=== PATIENT | female | born 1965 | race American Indian/Alaskan Native ===

== ENCOUNTER 2017-07-21 11:12 | Emergency (ER) | payer OTHER ==
[2017-07-21 11:13] VITALS: BMI 28.3
[2017-07-21 12:14] LABS: SQUAMOUS EPITHIAL < 1 /hpf (0-5); URINE BILIRUBIN NEGATIVE (NEGATIVE); URINE BLOOD NEGATIVE (NEGATIVE); URINE CLARITY Clear (Clear); URINE COLOR Yellow (YELLOW); URINE GLUCOSE (UA) NORMAL (Normal); URINE HYALINE CAST 0-2 /lpf (0-2); URINE LEUKOCYTE ESTERASE NEG Leu/uL (Negative); URINE PROTEIN 1+ mg/dL (NEGATIVE); URINE UROBILINOGEN NORMAL mg/dL (0.2-1.0)
[2017-07-21] MEDS ORDERED: Iohexol 240 (50 ml) PO STA (12:36)
--- NOTE | 2017-07-21 12:52 | C.PDOC ---
History Of Present Illness 51 y/o female with a history of diabetes and HTN presents to the ED with left sided abdominal pain. Patient states the pain began 4 days ago and describes it as constant, sharp, and throbbing. She states that when she went to turn her belly she felt a sudden shock of pain. Patient states she did not take her DM or HTN medication today because she did not eat anything today. Patient states her appetite has been "so-so" and hasn't had a bowel movement since yesterday with it being hard in consistency. She complains of feeling constipated. Her glucose check was 173 last night. Denies any nausea, vomiting, diarrhea, fever, urinary symptoms, vaginal bleeding, or discharge. Of note, LMP was 4 years ago. She states she had a uterine cyst removed along with a fibroid. Patient states she does not have asthma or shell fish allergy. PMD: Dr. Minnie Her Time Seen by Provider: 07/21/17 11:23 Chief Complaint (Nursing): Abdominal Pain History Per: Patient History/Exam Limitations: no limitations Onset/Duration Of Symptoms: Days (x1) Current Symptoms Are (Timing): Still Present Location Of Pain/Discomfort: LLQ, Other (left flank area) Quality Of Discomfort: Sharp, "Pain" Associated Symptoms: Loss Of Appetite, Constipation. denies: Fever, Nausea, Vomiting, Diarrhea, Urinary Symptoms Last Bowel Movement: Yesterday Recent travel outside of the [place]: No Abnormal Vaginal Bleeding: No Past Medical History Vital Signs: Last Vital Signs Temp 98 F 07/21/17 15:57 Pulse 78 07/21/17 15:57 Resp 18 07/21/17 15:57 BP 126/74 07/21/17 15:57 Pulse Ox 98 07/21/17 15:57 - Medical History PMH: Anxiety, Back Problems (herniated discs), Bronchitis, Depression, Diabetes , HTN, Hypercholesterolemia, Chronic Kidney Disease, Sleep Apnea Denies: Hepatitis, HIV, Seizures, Sexually Transmitted Disease Surgical History: Endoscopy Family History: States: Unknown Family Hx - Social History Hx Tobacco Use: No Hx Alcohol Use: Yes Hx Substance Use: No - Immunization History Hx Tetanus Toxoid Vaccination: No Hx Influenza Vaccination: Yes Hx Pneumococcal Vaccination: Yes Review Of Systems Constitutional: Positive for: Other (decreased appetite). Negative for: Fever Gastrointestinal: Positive for: Abdominal Pain (left side), Constipation. Negative for: Nausea, Vomiting, Diarrhea Genitourinary: Negative for: Vaginal Discharge, Vaginal Bleeding, Other ( urinary symptoms) Physical Exam - Physical Exam Appears: Non-toxic, No Acute Distress Skin: Normal Color, Warm, Dry Head: Atraumatic, Normacephalic Eye(s): bilateral: Normal Inspection, PERRL, EOMI Cardiovascular: Rhythm Regular, No Murmur Respiratory: Normal Breath Sounds Gastrointestinal/Abdominal: Normal Exam, Bowel Sounds, Soft, Tenderness (LLQ), No Distention, No Guarding, No Rebound Back: Normal Inspection, No CVA Tenderness Extremity: Normal ROM Neurological/Psych: Oriented x3 ED Course And Treatment - Laboratory Results Result Diagrams: 07/21/17 12:41 07/21/17 12:41 O2 Sat by Pulse Oximetry: 99 (RA) Pulse Ox Interpretation: Normal Medical Decision Making Medical Decision Making: Time: 11:18 Impression: Abdominal pain r/o diverticulitis and constipation Initial Plan: * CAT Scan Abd/Pelvis PO & IV Contrast * CMP * Lipase Stat * Omnipaque 50 ml PO * Urine Test Contrary to triage intake LMP was 4 years ago NOT 34 years ago. Scribe Attestation: Documented by Hafsa Hill acting as a scribe Chela Mortensen PA-C. Scribe Attestation: All medical record entries made by the Scribe were at my direction and personally dictated by me. I have reviewed the chart and agree that the record accurately reflects my personal performance of the history, physical exam, medical decision making, and the department course for this patient. I have also personally directed, reviewed, and agree with the discharge instructions and disposition. 1533 pt comfortable mild llq pain, no rebound or guarding. no acute findings on ct. pt advised to f/u with resolution agent for fibroid uterus. pt given labs and ct reports. Disposition Counseled Patient/Family Regarding: Studies Performed, Diagnosis, Need For Followup, Rx Given - Disposition Referrals: Minnie Her MD [Staff Provider] - Disposition: HOME/ ROUTINE Disposition Time: 15:35 Condition: GOOD Additional Instructions: Please drink more fluids. Eat more foods with high fiber- fruits, vegetables. Follow up with Dr Her and with your sinter feeder for pain. Tylenol for pain. Return to ER for any worse pain or concerns. Prescriptions: Acetaminophen [Tylenol 325mg tab] 650 mg PO Q6 #30 tab Instructions: Uterine Fibroids (DC) Forms: [facility] (Spanish), General Discharge Instructions - Clinical Impression Clinical Impression: Uterine fibroid, Abdominal pain
[2017-07-21 12:53] LABS: BASO % 0.8 % (0.0-2.0); EOS # 0.2 K/uL (0.0-0.7); EOS % 4.1 % (0.0-4.0); HEMOGLOBIN 12.1 g/dL (11.0-16.0); LYMPH % 39.6 % (20.0-40.0); MEAN CELL VOLUME 87.4 fL (81.0-99.0); MEAN CORPUSCULAR HGB CONC 34.3 g/dL (33.0-37.0); MEAN PLATELET VOLUME 7.8 fL (7.2-11.7); MONO # 0.2 K/uL (0.0-0.8); MONO % 4.7 % (0.0-10.0); NEUT # 2.6 K/uL (1.8-7.0); NEUT % 50.8 % (50.0-75.0); RBC 4.05 Mil/uL (3.80-5.20); RED CELL DISTRIBUTION WIDTH 13.8 % (11.5-14.5); WHITE BLOOD COUNT 5.1 K/uL (4.8-10.8)
[2017-07-21] MEDS ORDERED: Iohexol 240 (50 ml) ONE (12:53)
[2017-07-21 13:04] LABS: ALB/GLOB RATIO 1.2 (1.0-2.1); ALBUMIN 4.1 g/dL (3.5-5.0); ALT/SGPT 11 U/L (9-52); AST/SGOT 18 U/L (14-36); BLOOD UREA NITROGEN 15 mg/dL (7-17); CALCIUM 8.7 mg/dl (8.6-10.4); GFR AFRICAN-AMERICAN > 60; GFR NON-AFRICAN AMERICAN > 60; LIPASE 163 U/L (23-300)
[2017-07-21] MEDS ORDERED: Iohexol 350mg/ml 100 ML ONE (13:36)
--- NOTE | 2017-07-21 15:09 | CT ---
PROCEDURE: CT Abdomen and Pelvis with contrast HISTORY: q eval for divertic COMPARISON: Abdomen pelvis CT 08/23/2014. TECHNIQUE: Following oral and intravenous contrast administration, a CT examination of the abdomen and pelvis performed from the domes of the diaphragms to the symphysis pubis with reformatted datasets provided not only axial but also sagittal and coronal series. Contrast dose: Omnipaque 350, 100 cc Radiation dose: Total exam DLP = 506.56 mGy-cm. This CT exam was performed using one or more of the following dose reduction techniques: Automated exposure control, adjustment of the mA and/or kV according to patient size, and/or use of iterative reconstruction technique. FINDINGS: LOWER THORAX: Unremarkable. LIVER: Unremarkable. No gross lesion or ductal dilatation. GALLBLADDER AND BILE DUCTS: Unremarkable. PANCREAS: Unremarkable. No gross lesion or ductal dilatation. SPLEEN: Unremarkable. ADRENALS: Unremarkable. No mass. KIDNEYS AND URETERS: A 2.3 x 3.1 cm lucency is seen at the upper pole right kidney with measuring 20 Hounsfield units. A previously measures 23 Hounsfield units and measure 2.0 x 2.5 cm and likely reflects a proteinaceous cyst or benign nodule. A dates back at least to prior abdomen pelvis CT without contrast 09/13/2011. VASCULATURE: Unremarkable. No aortic aneurysm. BOWEL: No colonic diverticular changes appreciated. No obstruction. No gross mural thickening. APPENDIX: A lengthy nonacute appendix identified terminating at the left lower quadrant from a medial right lower quadrant origin. PERITONEUM: Unremarkable. No free fluid. No free air. LYMPH NODES: No significant lymphadenopathy. BLADDER: Unremarkable. REPRODUCTIVE: The uterus remains grossly enlarged likely from fibroid uterine changes with exophytic fibroid likely in the left adnexal compartment measuring 2.7 x 3.4 cm seen in prior CT 08/23/2014. BONES: No acute fracture. OTHER FINDINGS: None. IMPRESSION: 1. No bowel obstruction, measure edema, ascites or free intrarenal gas evident. No colonic diverticular changes. 2. Grossly enlarged uterus with heterogeneous density compatible most likely with extensive uterine fibroid development including an exophytic component into the left adnexal compartment, not dramatically changed in the interval compared [id number] 3. 3.1 cm lucency upper pole left kidney likely reflects complex cyst or possible benign nodule dating back to 09/13/2011 though somewhat larger now than previously shown. Follow ultrasonography is advised in 12 months.
[2017-07-21 15:58] VITALS: BP 126/74; PULSE 78; RESP 18; TEMP 98
[2017-07-25 08:32] VITALS: O2SAT 99
== END 2017-07-21 15:58 | disposition home or self-care (01) ==
LOC: C.ER 11:12
DX: D25.9 Leiomyoma of uterus, unspecified (principal); R10.9 Unspecified abdominal pain
CPT/HCPCS: 74177; 80053; 81001; 83690; 85025; 99285; Q9966; Q9967

== ENCOUNTER 2017-09-28 02:01 | Emergency (ER) | payer OTHER ==
[2017-09-28 02:02] VITALS: BMI 28.3
[2017-09-28 03:50] LABS: ALB/GLOB RATIO 1.3 (1.0-2.1); ALBUMIN 4.1 g/dL (3.5-5.0); ALT/SGPT 18 U/L (9-52); AST/SGOT 13 U/L (14-36); BLOOD UREA NITROGEN 16 mg/dL (7-17); CALCIUM 9.4 mg/dl (8.6-10.4); GFR AFRICAN-AMERICAN > 60; GFR NON-AFRICAN AMERICAN > 60
[2017-09-28 03:56] LABS: BASO % 0.4 % (0.0-2.0); EOS # 0.3 K/uL (0.0-0.7); EOS % 4.6 % (0.0-4.0); HEMOGLOBIN 11.4 g/dL (11.0-16.0); LYMPH # 2.5 K/uL (1.0-4.3); LYMPH % 39.7 % (20.0-40.0); MEAN CELL VOLUME 86.1 fL (81.0-99.0); MEAN CORPUSCULAR HEMOGLOBIN 29.6 pg (27.0-31.0); MEAN CORPUSCULAR HGB CONC 34.4 g/dL (33.0-37.0); MEAN PLATELET VOLUME 7.5 fL (7.2-11.7); MONO # 0.4 K/uL (0.0-0.8); MONO % 6.3 % (0.0-10.0); NRBC % 0.1 % (0.0-2.0); RBC 3.85 Mil/uL (3.80-5.20); RED CELL DISTRIBUTION WIDTH 13.6 % (11.5-14.5); WHITE BLOOD COUNT 6.2 K/uL (4.8-10.8)
[2017-09-28 04:01] LABS: B-TYPE NATRIURETIC PEPTIDE 64.2 pg/mL (0-900)
--- NOTE | 2017-09-28 04:04 | C.PDOC ---
History Of Present Illness 52 year old female presents to the ER with a complaint of an intermittent sharp left sided back pain that radiates to her left chest for the past 3 days. Denies SOB, fever, or trauma. Time Seen by Provider: 09/28/17 02:23 Chief Complaint (Nursing): Back Pain History Per: Patient History/Exam Limitations: no limitations Onset/Duration Of Symptoms: Days, Intermittent Episodes Current Symptoms Are (Timing): Still Present Quality Of Discomfort: Sharp Exacerbating Factor(s): Nothing Recent travel outside of the [place]: No Past Medical History Reviewed: Historical Data, Nursing Documentation, Vital Signs Vital Signs: Last Vital Signs Temp 98.4 F 09/28/17 05:07 Pulse 86 09/28/17 05:07 Resp 20 09/28/17 05:07 BP 171/97 H 09/28/17 05:07 Pulse Ox 99 09/28/17 05:07 - Medical History PMH: Anxiety, Back Problems (herniated discs), Bronchitis, Depression, Diabetes , HTN, Hypercholesterolemia, Chronic Kidney Disease, Sleep Apnea Denies: Hepatitis, HIV, Seizures, Sexually Transmitted Disease Surgical History: Endoscopy Family History: States: Unknown Family Hx - Social History Hx Tobacco Use: No Hx Alcohol Use: Yes Hx Substance Use: No - Immunization History Hx Tetanus Toxoid Vaccination: No Hx Influenza Vaccination: Yes Hx Pneumococcal Vaccination: Yes Review Of Systems Constitutional: Negative for: Fever, Chills Cardiovascular: Positive for: Chest Pain Respiratory: Negative for: Shortness of Breath Gastrointestinal: Negative for: Nausea, Vomiting Musculoskeletal: Positive for: Back Pain Physical Exam - Physical Exam Appears: Non-toxic Skin: Normal Color, Warm, Dry Head: Atraumatic, Normacephalic Eye(s): bilateral: Normal Inspection Oral Mucosa: Moist Neck: Normal, No Midline Cervical Tenderness, No Paracervical Tenderness, Supple Chest: Symmetrical, No Tenderness Cardiovascular: Rhythm Regular Respiratory: Normal Breath Sounds, No Rales, No Rhonchi, No Wheezing Gastrointestinal/Abdominal: Soft, No Tenderness Extremity: Normal ROM (x4) Neurological/Psych: Oriented x3, Normal Speech ED Course And Treatment - Laboratory Results Result Diagrams: 09/28/17 03:53 09/28/17 03:35 ECG: Interpreted By Me ECG Rhythm: Sinus Rhythm ECG Interpretation: Normal Interpretation Of EC O2 Sat by Pulse Oximetry: 98 (Room air) Pulse Ox Interpretation: Normal Medical Decision Making Medical Decision Making: EKG, blood work, and CXR ordered, results were negative. Aspirin administered. On reevaluation, patient reports improvement of pain, she is resting comfortably in the ER in no acute distress, vitals are stable, will discharge home with instructions to follow up with PMD or return if symptoms worsen. Disposition - Disposition Referrals: Minnie Her MD [Staff Provider] - Disposition: HOME/ ROUTINE Disposition Time: 04:56 Condition: GOOD Additional Instructions: Follow up with the medical doctor/clinic within 1-2 days without fail. Return if worsened. 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 - Scribe Statement The provider has reviewed the documentation as recorded by the Scribe Donnie Ng All medical record entries made by the Scribe were at my direction and personally dictated by me. I have reviewed the chart and agree that the record accurately reflects my personal performance of the history, physical exam, medical decision making, and the department course for this patient. I have also personally directed, reviewed, and agree with the discharge instructions and disposition.
[2017-09-28 05:08] VITALS: BP 171/97; PULSE 86; RESP 20; TEMP 98.4
[2017-09-28 05:53] VITALS: O2SAT 98
--- NOTE | 2017-09-28 09:43 | RAD ---
Date of service: 09/28/2017 PROCEDURE: CHEST RADIOGRAPH, 1 VIEW HISTORY: chest pain COMPARISON: Chest radiograph 04/22/2011. FINDINGS: LUNGS: No acute airspace disease bilaterally. PLEURA: No pneumothorax or pleural fluid seen. CARDIOVASCULAR: Normal. OSSEOUS STRUCTURES: No significant abnormalities. VISUALIZED UPPER ABDOMEN: Normal. OTHER FINDINGS: None. IMPRESSION: No interval acute cardiopulmonary disease appreciated.
--- NOTE | 2017-09-30 12:20 | CARD ---
APPROVED REPORT Date of service: 09/28/2017 EKG Measurement Heart [id number] MA [id number] <Conclusion> Normal sinus rhythm Nonspecific T wave abnormality Abnormal ECG
== END 2017-09-28 05:14 | disposition home or self-care (01) ==
LOC: C.ER 02:01
DX: M94.0 Chondrocostal junction syndrome [Tietze] (principal)

== ENCOUNTER 2018-01-23 19:57 | Emergency (ER) | payer OTHER ==
[2018-01-23 19:57] VITALS: BMI 28.3
[2018-01-23 20:07] VITALS: TEMP 98.2
[2018-01-23] MEDS ORDERED: Albuterol-Ipratrop 3 mg / 0.5 (3 ml) UD IH STA (20:35)
[2018-01-23] MEDS ORDERED: Albuterol-Ipratrop 3 mg / 0.5 (3 ml) UD ONE (20:44)
--- NOTE | 2018-01-23 21:24 | C.PDOC ---
History Of Present Illness 52 y/o female presents to the ER complaining of productive cough with yellow sputum which has been present for the past 2 weeks.Patient states that she has associated nasal congestion and sore throat. Patient reports that she took OTC Theraflu which raised her bp. Denies having fever, chills, headache, and dizziness. Time Seen by Provider: 01/23/18 20:17 Chief Complaint (Nursing): Cough, Cold, Congestion History Per: Patient History/Exam Limitations: no limitations Onset/Duration Of Symptoms: Days Current Symptoms Are (Timing): Still Present Severity: Moderate Past Medical History Reviewed: Historical Data, Nursing Documentation, Vital Signs Vital Signs: Last Vital Signs Temp 98.2 F 01/23/18 20:03 Pulse 86 01/23/18 20:03 Resp 20 01/23/18 20:03 BP 160/100 H 01/23/18 20:03 Pulse Ox 98 01/23/18 20:03 - Medical History PMH: Back Problems (herniated discs), Bronchitis, Diabetes, Gastritis, HTN, Hypercholesterolemia, Chronic Kidney Disease, Sleep Apnea Surgical History: Endoscopy Family History: States: No Known Family Hx - Social History Hx Tobacco Use: No Hx Alcohol Use: No Hx Substance Use: No - Immunization History Hx Tetanus Toxoid Vaccination: No Hx Influenza Vaccination: Yes Hx Pneumococcal Vaccination: Yes Review Of Systems Except As Marked, All Systems Reviewed And Found Negative. Constitutional: Negative for: Fever, Chills ENT: Positive for: Nose Congestion, Throat Pain Respiratory: Positive for: Cough, Sputum (yellow) Gastrointestinal: Negative for: Nausea, Vomiting Neurological: Negative for: Headache, Dizziness Physical Exam - Physical Exam Appears: Non-toxic, Other (dry coughing) Skin: Normal Color, Warm, Dry Head: Atraumatic, Normacephalic Eye(s): bilateral: Normal Inspection, EOMI Ear(s): Bilateral: Normal Nose: Normal Oral Mucosa: Moist Throat: No Erythema, No Exudate, Other (post-nasal drip) Neck: Normal ROM, Supple Chest: Symmetrical Cardiovascular: Rhythm Regular, No Friction Rub, No Murmur, No JVD Respiratory: Normal Breath Sounds, No Rales, No Rhonchi, No Wheezing Extremity: Bilateral: Atraumatic, Normal ROM Neurological/Psych: Oriented x3, Normal Speech ED Course And Treatment O2 Sat by Pulse Oximetry: 98 (RA) Pulse Ox Interpretation: Normal Medical Decision Making Medical Decision Making: Plan: --Prednisone PO --Albuterol Patient remained alert and oriented in no distress. She has no SOB, chest pain, dizziness. Patient reported relief with nebulizer. Recommend follow up with PMD Disposition Counseled Patient/Family Regarding: Diagnosis, Need For Followup, Rx Given - Disposition Referrals: Lyla Her MD [Medical Doctor] - Disposition: HOME/ ROUTINE Disposition Time: 21:24 Condition: IMPROVED Additional Instructions: You have viral upper respiratory infection. Take Tylenol or Motrin alternating every 4-6 hours for Fever 100.4F or higher. Rest and drink plenty of fluids. May use cool mist humidifier or vaporizer in room. Try taking over the counter antihistamine (Claritin, Brittany, Zyrtec), Decongestant or Cough medicine (Mucinex) as needed every 6-8 hours. Follow up with your primary medical doctor or clinic in 1 week for further evaluation. 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 - Scribe Statement The provider has reviewed the documentation as recorded by the Kaitlin Escobar Provider Attestation All medical record entries made by the Kaitlin were at my direction and personally dictated by me. I have reviewed the chart and agree that the record accurately reflects my personal performance of the history, physical exam, medical decision making, and the department course for this patient. I have also personally directed, reviewed, and agree with the discharge instructions and disposition.
[2018-01-23 21:34] VITALS: BP 158/84; PULSE 80; RESP 18
[2018-01-23 21:35] VITALS: O2SAT 98
== END 2018-01-23 21:34 | disposition home or self-care (01) ==
LOC: C.ER 19:57
DX: J40 Bronchitis, not specified as acute or chronic (principal)

== ENCOUNTER 2018-02-27 09:29 | Outpatient (CLI) | payer OTHER | END 2018-02-27 09:30 | disposition home or self-care (01) | LOC: C.MAMMO 09:30 | DX: N63.0 Unspecified lump in unspecified breast (principal) ==

== ENCOUNTER 2018-04-05 03:58 | Inpatient (IN) | payer MEDICAID, OTHER ==
[2018-04-05 03:59] VITALS: BMI 28.3
[2018-04-05] MEDS ORDERED: Sodium Chloride 0.9% 1,000 ML IV ONE (05:04)
--- NOTE | 2018-04-05 05:15 | C.PDOC ---
History Of Present Illness 52 year old female with PMHx of HTN, DM, and HLD presents to the ED for evaluation of abdominal pain and back pain. Patient states that she ate at [employer] today where she had some salad, wings and 2 glasses of wine. Patient reports that soon after eating she started feeling sick, chills. Patient vomited and had a loose bowel movement while at the restaurant. Patient went home where she had more vomiting episodes and loose bowel movements. Patient reports she thinks she might have food poisoning. Patient denies fever, chills, headache, visual changes, SOB, palpitations, dizziness, weakness, numbness. <Elder Shirley - Last Filed: 04/05/18 05:41> History Per: Patient History/Exam Limitations: no limitations Onset/Duration Of Symptoms: Hrs Current Symptoms Are (Timing): Still Present Context: Food Pain Scale Rating Of: 5 Location Of Pain/Discomfort: Diffuse Radiation Of Pain To:: None Quality Of Discomfort: "Pain" Associated Symptoms: Nausea, Vomiting, Diarrhea. denies: Urinary Symptoms Exacerbating Factors: Food Alleviating Factors: None Last Bowel Movement: Today Recent travel outside of the [place]: No Additional History Per: Patient Abnormal Vaginal Bleeding: No <Elder Shirley - Last Filed: 04/05/18 05:41> <Dalton Molina - Last Filed: 04/05/18 05:53> Time Seen by Provider: 04/05/18 04:06 Chief Complaint (Nursing): Abdominal Pain Past Medical History Reviewed: Historical Data, Nursing Documentation, Vital Signs Vital Signs: Last Vital Signs Temp 97.3 F L 04/05/18 04:09 Pulse 66 04/05/18 04:09 Resp 16 04/05/18 04:09 BP 188/91 H 04/05/18 04:09 Pulse Ox 100 04/05/18 04:09 - Medical History PMH: Back Problems (herniated discs), Bronchitis, Diabetes, Gastritis, HTN, Hypercholesterolemia, Chronic Kidney Disease, Sleep Apnea Denies: Hepatitis, HIV, Sexually Transmitted Disease Surgical History: Endoscopy Family History: States: Unknown Family Hx - Social History Hx Tobacco Use: No Hx Alcohol Use: No Hx Substance Use: No - Immunization History Hx Tetanus Toxoid Vaccination: No Hx Influenza Vaccination: Yes Hx Pneumococcal Vaccination: Yes <Elder Shirley - Last Filed: 04/05/18 05:41> Vital Signs: Last Vital Signs Temp 97.3 F L 04/05/18 04:09 Pulse 66 04/05/18 04:09 Resp 16 04/05/18 04:09 BP 188/91 H 04/05/18 04:09 Pulse Ox 100 04/05/18 05:18 <Dalton Molina - Last Filed: 04/05/18 05:53> Review Of Systems Constitutional: Negative for: Fever, Chills Cardiovascular: Negative for: Chest Pain, Palpitations Respiratory: Negative for: Shortness of Breath Gastrointestinal: Positive for: Nausea, Vomiting, Abdominal Pain, Diarrhea Genitourinary: Negative for: Dysuria, Hematuria Musculoskeletal: Positive for: Back Pain Skin: Negative for: Rash Neurological: Negative for: Weakness, Numbness, Headache, Dizziness <Elder Shirley - Last Filed: 04/05/18 05:41> Physical Exam - Physical Exam Appears: Non-toxic, No Acute Distress Skin: Normal Color, Warm, Dry Head: Atraumatic, Normacephalic Eye(s): bilateral: Normal Inspection Oral Mucosa: Moist Neck: Normal ROM, Supple Chest: Symmetrical Cardiovascular: Rhythm Regular Respiratory: Normal Breath Sounds, No Rales, No Rhonchi, No Wheezing Gastrointestinal/Abdominal: Soft, Tenderness (diffuse to the epigastric area), No Guarding, No Rebound Back: No Paraspinal Tenderness Extremity: Normal ROM, No Tenderness, No Swelling Neurological/Psych: Oriented x3, Normal Speech, Normal Cognition Gait: Steady <Elder Shirley - Last Filed: 04/05/18 05:41> ED Course And Treatment - Laboratory Results Result Diagrams: 04/05/18 05:33 O2 Sat by Pulse Oximetry: 100 <Elder Shirley - Last Filed: 04/05/18 05:41> - Laboratory Results Result Diagrams: 04/05/18 05:33 ECG: Interpreted By Me, Viewed By Me ECG Rhythm: Sinus Rhythm (71), ST/T Changes (inf wall mi) Pulse Ox Interpretation: Normal - Radiology CXR: Interpreted by Me, Viewed By Me Progress Note: 5:17 am sent ekg to dr morales. 5;22AM code heart called <TracyRachanita - Last Filed: 04/05/18 05:53> Critical Care Time - Critical Care Note Total Time (in mins): 30 Documented critical care: time excludes all time spent performing seperately billable procedures. <Dalton Molina - Last Filed: 04/05/18 05:53> Medical Decision Making Medical Decision Making: Plan: * EKG * Labs * CXR * Aspirin 325 mg PO * Brilinta 180 mg PO * Heparin IVPB * Nitroglycerin IV * IV fluids * UA 05:10- While in the ED patient started c/o sudden onset chest pain, EKG, CXR, cardiac enzymes were ordered. EKG was suggestive of STEMI of the inferior wall with ST elevations present. Case was presented to the ED attending Dr. Molina who communicated with Dr. Morales (code [facility] occupational therapy teacher). 05:17 - EKG was sent to Dr. Morales for review, agrees that code [facility] should be called. 05:20- [facility] was called. 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 - Scribe Statement The provider has reviewed the documentation as recorded by the Scribe Hiren Suazo All medical record entries made by the Scribe were at my direction and personally dictated by me. I have reviewed the chart and agree that the record accurately reflects my personal performance of the history, physical exam, medical decision making, and the department course for this patient. I have also personally directed, reviewed, and agree with the discharge instructions and disposition. <Elder Shirley - Last Filed: 04/05/18 05:41> Decision To Admit <Elder Shirley - Last Filed: 04/05/18 05:41> - Pt Status Changed To: Hospital Disposition Of: Inpatient - Admit Certification Admit to Inpatient:: After my assessment, the patient will require hospitalization for at least two midnights. This is because of the severity of symptoms shown, intensity of services needed, and/or the medical risk in this patient being treated as an outpatient. - InPatient: Physician Admission Certification:: After my assessment, the patient will require hospitalization for at least two midnights. This is because of the severity of symptoms shown, intensity of services needed, and/or the medical risk in this patient being treated as an outpatient. - . Bed Request Type: ICU Admitting Physician: Minnie Her <Dalton Molina - Last Filed: 04/05/18 05:53> - . Patient Diagnosis: Acute HI, inferior wall
[2018-04-05] MEDS ORDERED: Nitroglycerin 2% Ointment Foilpak UD TOP STA (05:18)
--- NOTE | 2018-04-05 05:18 | C.PDOC ---
Time Seen by Provider: 04/05/18 04:06 Chief Complaint (Nursing): Chest Pain History Per: Patient History/Exam Limitations: no limitations Onset/Duration Of Symptoms: Sudden Onset Current Symptoms Are (Timing): Still Present Pain Scale Rating Of: 5 Quality: Pressure Associated Symptoms: Nausea, Dyspnea. denies: Diaphoresis, Syncope Past Medical History Reviewed: Historical Data, Nursing Documentation Vital Signs: Last Vital Signs Temp 97.3 F L 04/05/18 04:09 Pulse 66 04/05/18 04:09 Resp 16 04/05/18 04:09 BP 188/91 H 04/05/18 04:09 Pulse Ox 100 04/05/18 05:15 - Medical History PMH: Back Problems (herniated discs), Bronchitis, Diabetes, Gastritis, HTN, Hypercholesterolemia, Chronic Kidney Disease, Sleep Apnea Denies: Hepatitis, HIV, Sexually Transmitted Disease Surgical History: Endoscopy Family History: States: Unknown Family Hx - Social History Hx Tobacco Use: No Hx Alcohol Use: No Hx Substance Use: No - Immunization History Hx Tetanus Toxoid Vaccination: No Hx Influenza Vaccination: Yes Hx Pneumococcal Vaccination: Yes ED Course And Treatment O2 Sat by Pulse Oximetry: 100 Disposition - Disposition Forms: [facility] (Mauritian)
[2018-04-05] MEDS ORDERED: Heparin25000 units/250ml 1/2NS 25,000 UNITS/250 ML BAG IV ONE (05:27)
[2018-04-05] MEDS ORDERED: Nitroglycerin 50mg in D5W 50 MG/250 ML BOTTLE IV ONE (05:30)
[2018-04-05 05:39] LABS: BASO # 0.1 K/uL (0.0-0.2); BASO % 1.2 % (0.0-2.0); EOS # 0.3 K/uL (0.0-0.7); EOS % 3.3 % (0.0-4.0); HEMOGLOBIN 12.6 g/dL (11.0-16.0); LYMPH # 1.5 K/uL (1.0-4.3); LYMPH % 18.7 % (20.0-40.0); MEAN CELL VOLUME 86.9 fL (81.0-99.0); MEAN CORPUSCULAR HEMOGLOBIN 28.9 pg (27.0-31.0); MEAN CORPUSCULAR HGB CONC 33.3 g/dL (33.0-37.0); MEAN PLATELET VOLUME 7.7 fL (7.2-11.7); MONO # 0.2 K/uL (0.0-0.8); MONO % 2.6 % (0.0-10.0); NEUT % 74.2 % (50.0-75.0); RBC 4.36 Mil/uL (3.80-5.20)
[2018-04-05] MEDS ORDERED: Iodixanol 320 MG/ML 200 ML BOTTLE IV ONE (05:57)
[2018-04-05 06:01] LABS: INR 1.1; PROTHROMBIN TIME 11.7 SECONDS (9.7-12.2)
[2018-04-05] MEDS ORDERED: Metoprolol 1 mg/ml Inj ONE (06:05)
[2018-04-05] MEDS ORDERED: Lidocaine 2% MPF (5 ml) Inj ONE (06:30)
[2018-04-05] MEDS ORDERED: Midazolam 2 MG/2 ML VIAL ONE (06:31)
[2018-04-05] MEDS ORDERED: Iodixanol 320 MG/ML 100 ML BOTTLE IV ONE (06:43)
[2018-04-05 07:45] LABS: ALB/GLOB RATIO 1.5 (1.0-2.1); ALBUMIN 3.6 g/dL (3.5-5.0); ALT/SGPT 18 U/L (9-52); AST/SGOT 41 U/L (14-36); BLOOD UREA NITROGEN 23 mg/dL (7-17); CALCIUM 8.5 mg/dl (8.6-10.4); GFR NON-AFRICAN AMERICAN > 60
[2018-04-05] MEDS ORDERED: Magnesium Sulfate 454 g Box PO STA (08:33)
[2018-04-05] MEDS ORDERED: Magnesium Sulfate 1 gm in D5W 1 GM/100 ML BAG IVPB ONE (08:53)
--- NOTE | 2018-04-05 09:21 | CP.PCM.CON ---
History of Present Illness - History of Present Illness History of Present Illness: Chief complaint: Chest pain HPI: 52-year-old female with a history of hypertension diabetes high cholesterol taking some medications, but not clear came to the emergency room with chest pain. Yesterday she went eating during the lunchtime outside, after eating she started having some discomfort in the chest, she was also having episodes of diarrhea, vomiting She went home, following that she continues to have a symptoms of chest d iscomfort pain and burning sensation in the outer chest area, and vomited again. Patient's daughter immediately called ambulance, and brought to the emergency room. In the ER patient was evaluated, code heart was initiated because of the ST elevation changes in the EKG. Patient was immediately taken to the cardiac Fiscal Technician, patient had angiogram, and stent placement to the RCA, and she also has lesions in the LAD which probably needs to be evaluated and needed intervention later. Now patient is feeling okay, she has mild chest discomfort, blood pressure was noted to be elevated, no chest pain or shortness of breath at this time. Past medical history: Diabetes hypertension high cholesterol Allergies no known drug allergy Personal history non-smoker. No drug abuse Nonalcoholic Patient is working in the [employer] Review of system: No headache. Denies any chest pain. Patient had a chest discomfort and pain yesterday. She was having a lot of pain for some time in the past No GI symptoms except vomiting and diarrhea yesterday. No abdominal pain now. Patient is feeling somewhat hungry On examination: Vital signs are stable. Chest good air entry Regular heart sounds noted Abdomen soft Nontender. No pedal edema [employer] alert awake oriented x3 no functional neurological deficit EKG showing ST elevation inferior wall. Labs positive for troponin Assessment and recommendation: Is a 52-year-old female with a history of diabetes hypertension high cholesterol admitted with the ST elevation GA. Multiple heart disease. Status post stent. Patient also needs a elective stenting for LAD. We will continue antiplatelets, anti-cholesterol medication as well as the blood pressure medications. Glucose monitoring. DVT and GI prophylaxis. We will continue the current treatment. Blood pressure control. And will follow the patient. Educated the patient regarding the heart disease Past Patient History - Infectious Disease Hx of Infectious Diseases: None - Tetanus Immunizations Tetanus Immunization: Unknown - Past Medical History & Family History Past Medical History?: Yes - Past Social History Smoking Status: Never Smoked - CARDIAC Hx Hypercholesterolemia: Yes Hx Hypertension: Yes - PULMONARY Hx Bronchitis: Yes Hx Sleep Apnea: Yes - HEENT Hx HEENT Problems: Yes Other/Comment: HX: DEVIATED SEPTUM, ENLARGED TURBINATES, MAXILLARY SINSUS, ETHMOID SINSUS, FRONTAL SINSUS, SPHENOID SINSUS - RENAL Hx Chronic Kidney Disease: Yes - ENDOCRINE/METABOLIC Hx Endocrine Disorders: Yes Hx Diabetes Mellitus Type 1: Yes - HEMATOLOGICAL/ONCOLOGICAL Hx Human Immunodeficiency Virus (HIV): No - INTEGUMENTARY Hx Dermatological Problems: No - MUSCULOSKELETAL/RHEUMATOLOGICAL Hx Musculoskeletal Disorders: No Hx Falls: No - GASTROINTESTINAL Hx Gastritis: Yes - GENITOURINARY/GYNECOLOGICAL Hx Sexually Transmitted Disorders: No - PSYCHIATRIC Hx Substance Use: No - SURGICAL HISTORY Hx Surgeries: Yes Other/Comment: HX: FIBROID REMOVED FROM UTERUS. HX: CYST REMOVED FROM KIDNEY - ANESTHESIA Hx Anesthesia: Yes Hx Anesthesia Reactions: No Hx Malignant Hyperthermia: No Meds Allergies/Adverse Reactions: Allergies Allergy/AdvReac Type Severity Reaction Status Date / Time No Known Allergies Allergy Verified 01/23/18 20:07 - Medications Medications: Current Medications Aspirin (Aspirin) 325 mg PO DAILY [facility] Heparin Sodium/Sodium Chloride (Heparin 07457 Units/250ml 1/2 Normal Saline) 25,000 units in 250 mls @ 9.09 mls/hr IV .Q24H ONE; Protocol Stop: 04/06/18 05:26 Last Admin: 04/05/18 05:30 Dose: 12 units/kg/hr, 9.09 mls/hr Nitroglycerin/Dextrose (Nitroglycerin 50 Mg/250 Ml D5w) 50 mg in 250 mls @ 6 mls/hr IV .Q24H ONE Stop: 04/06/18 05:29 Last Admin: 04/05/18 05:35 Dose: 6 mls/hr Potassium Chloride (Potassium Chloride 20 Meq/100 Ml) 20 meq in 100 mls @ 50 mls/hr IVPB ONCE ONE Stop: 04/05/18 12:29 Magnesium Sulfate/Dextrose (Magnesium Sulfate 1 Gm/100 Ml D5w) 1 gm in 100 mls @ 200 mls/hr IVPB ONCE ONE Stop: 04/05/18 09:22 Losartan Potassium (Cozaar) 25 mg PO DAILY [facility] Rosuvastatin Calcium (Crestor) 5 mg PO HS [facility] Ticagrelor (Brilinta) 90 mg PO BID [facility] Results - Vital Signs Recent Vital Signs: Last Vital Signs Temp 97.9 F 04/05/18 05:40 Pulse 92 H 04/05/18 05:40 Resp 24 04/05/18 05:40 BP 201/134 H 04/05/18 05:40 Pulse Ox 100 04/05/18 05:41 - Labs Result Diagrams: 04/05/18 05:33 04/05/18 07:29 Labs: Laboratory Results - last 24 hr 04/05/18 04/05/18 04/05/18 05:33 05:33 07:29 WBC 8.0 RBC 4.36 Hgb 12.6 Hct 37.9 MCV 86.9 MCH 28.9 MCHC 33.3 RDW 14.0 Plt Count 299 MPV 7.7 Neut % (Auto) 74.2 Lymph % (Auto) 18.7 L [place] % (Auto) 2.6 Eos % (Auto) 3.3 Baso % (Auto) 1.2 Neut # (Auto) 6.0 Lymph # (Auto) 1.5 [place] # (Auto) 0.2 Eos # (Auto) 0.3 Baso # (Auto) 0.1 PT 11.7 INR 1.1 APTT 26 D-Dimer, Quantitative 273 H Sodium 137 Potassium 3.4 L Chloride 102 Carbon Dioxide 29 Anion Gap 10 BUN 23 H Creatinine 0.9 Est GFR ( Amer) > 60 Est GFR (Non-Af Amer) > 60 Random Glucose 374 H D Calcium 8.5 L Phosphorus Magnesium Total Bilirubin 0.4 AST 41 H D ALT 18 Alkaline Phosphatase 84 Troponin I 5.4900 H* Total Protein 6.0 L Albumin 3.6 Globulin 2.4 Albumin/Globulin Ratio 1.5 04/05/18 08:50 WBC RBC Hgb Hct MCV MCH MCHC RDW Plt Count MPV Neut % (Auto) Lymph % (Auto) [place] % (Auto) Eos % (Auto) Baso % (Auto) Neut # (Auto) Lymph # (Auto) [place] # (Auto) Eos # (Auto) Baso # (Auto) PT INR APTT D-Dimer, Quantitative Sodium Potassium Chloride Carbon Dioxide Anion Gap BUN Creatinine Est GFR ( Amer) Est GFR (Non-Af Amer) Random Glucose Calcium Phosphorus 3.5 Magnesium 1.7 Total Bilirubin AST ALT Alkaline Phosphatase Troponin I Total Protein Albumin Globulin Albumin/Globulin Ratio
--- NOTE | 2018-04-05 10:22 | RAD ---
Date of service: 04/05/2018 HISTORY: SOB; chest pain COMPARISON: Portable chest 09/28/2017. FINDINGS: LUNGS: No active pulmonary disease. PLEURA: No significant pleural effusion identified, no pneumothorax apparent. CARDIOVASCULAR: No aortic atherosclerotic calcification present. Normal cardiac size. No pulmonary vascular congestion. OSSEOUS STRUCTURES: No significant abnormalities. VISUALIZED UPPER ABDOMEN: Normal. OTHER FINDINGS: None. IMPRESSION: No acute cardiopulmonary disease appreciated.
[2018-04-05] MEDS: (Novolin R) Insulin Human Regular 100 units/ml vial SC SCH ×3 (12:34→21:25)
[2018-04-05 15:52] LABS: BASO % 0.6 % (0.0-2.0); EOS % 0.5 % (0.0-4.0); LYMPH # 1.3 K/uL (1.0-4.3); LYMPH % 15.6 % (20.0-40.0); MEAN CELL VOLUME 87.4 fL (81.0-99.0); MEAN CORPUSCULAR HEMOGLOBIN 29.5 pg (27.0-31.0); MEAN CORPUSCULAR HGB CONC 33.8 g/dL (33.0-37.0); MONO # 0.4 K/uL (0.0-0.8); MONO % 4.6 % (0.0-10.0); NEUT # 6.4 K/uL (1.8-7.0); NEUT % 78.7 % (50.0-75.0); RBC 3.56 Mil/uL (3.80-5.20); RED CELL DISTRIBUTION WIDTH 14.3 % (11.5-14.5); WHITE BLOOD COUNT 8.2 K/uL (4.8-10.8)
--- NOTE | 2018-04-05 15:57 | US ---
Date of service: 04/05/2018 HISTORY: abd pain COMPARISON: Abdomen pelvis CT 07/21/2017. TECHNIQUE: Sonographic evaluation of the abdomen. FINDINGS: LIVER: Measures 19.5 cm. Normal echogenicity of the liver parenchyma. No mass. No intrahepatic bile duct dilatation. GALLBLADDER: Unremarkable. No gallstones. COMMON BILE DUCT: Measures 5.0 mm. No stones. No dilatation. PANCREAS: The tail of the pancreas is obscured by overlying bowel gas with remainder unremarkable. RIGHT KIDNEY: Measures 10.2cm. A complex cyst is a identified at the upper pole right kidney measuring 2.9 x 2.6 x 2.9 cm, not significantly changed in size compared to CT 07/21/2017. No hydronephrosis, urolithiasis or solid parenchymal mass. LEFT KIDNEY: Measures 11.1cm. A small simple cyst seen at the upper pole slightly larger in size measuring 1.4 x 1.3 x 1.5 cm. No obstructive uropathy or urolithiasis. No solid parenchymal mass. SPLEEN: Normal in size and contour, measuring 8.7 cm. No mass. AORTA: No aneurysmal dilatation. IVC: Unremarkable. OTHER FINDINGS: None. IMPRESSION: Upper limits normal size liver without mass or biliary tree dilatation evident. Gallbladder and common bile ducts are unremarkable as imaged. Partial imaging of the pancreas as discussed above. Small complex cyst upper pole left kidney with even smaller simple cysts noted slightly larger at the upper pole left kidney. The tail of the pancreas is obscured by overlying bowel gas with remainder unremarkable.
[2018-04-05 15:58] LABS: HEMOGLOBIN 10.5 g/dL (11.0-16.0)
[2018-04-05 16:25] LABS: ALB/GLOB RATIO 1.5 (1.0-2.1); ALBUMIN 3.9 g/dL (3.5-5.0); ALT/SGPT 25 U/L (9-52); AST/SGOT 141 U/L (14-36); BLOOD UREA NITROGEN 26 mg/dL (7-17); GFR NON-AFRICAN AMERICAN > 60; LIPASE 114 U/L (23-300)
[2018-04-05 16:27] LABS: CK-MB 34.8 ng/mL (0.0-3.38); TROPONIN I 58.9 ng/mL (0.00-0.120)
[2018-04-06 06:32] LABS: BASO % 0.4 % (0.0-2.0); EOS # 0.2 K/uL (0.0-0.7); EOS % 2.8 % (0.0-4.0); HEMOGLOBIN 10.2 g/dL (11.0-16.0); LYMPH # 2.5 K/uL (1.0-4.3); LYMPH % 39.9 % (20.0-40.0); MEAN CELL VOLUME 87.2 fL (81.0-99.0); MEAN CORPUSCULAR HEMOGLOBIN 29.2 pg (27.0-31.0); MEAN CORPUSCULAR HGB CONC 33.5 g/dL (33.0-37.0); MEAN PLATELET VOLUME 7.9 fL (7.2-11.7); MONO # 0.4 K/uL (0.0-0.8); MONO % 6.3 % (0.0-10.0); NEUT # 3.2 K/uL (1.8-7.0); NEUT % 50.6 % (50.0-75.0); RBC 3.48 Mil/uL (3.80-5.20); RED CELL DISTRIBUTION WIDTH 14.1 % (11.5-14.5); WHITE BLOOD COUNT 6.3 K/uL (4.8-10.8)
[2018-04-06 06:49] LABS: ALB/GLOB RATIO 1.4 (1.0-2.1); ALBUMIN 3.5 g/dL (3.5-5.0); ALT/SGPT 26 U/L (9-52); AST/SGOT 76 U/L (14-36); BLOOD UREA NITROGEN 29 mg/dL (7-17); CALCIUM 8.9 mg/dl (8.6-10.4); GFR NON-AFRICAN AMERICAN 53; HDL CHOLESTEROL 41 mg/dL (30-70)
[2018-04-06 06:57] LABS: LDL CHOLESTEROL 98 mg/dL (0-129)
[2018-04-06] MEDS: (Novolin R) Insulin Human Regular 100 units/ml vial SC SCH ×4 (08:14→23:00)
--- NOTE | 2018-04-06 11:33 | CATH ---
APPROVED REPORT Date of service: 04/05/2018 Procedure(s) performed: Cardiac catheterization with Angioplasty and Stenting of RCA and P L branch of RCA HISTORY The patient is a 52 year-old female with a history of : diabetes mellitus with treatment, hypertension, dyslipidemia. INDICATION The indication(s) include : STEMI (>0 to less than or equal to 6 hours). CASE TECHNIQUE The patient was brought emergently to the Cardiac Catheterization Laboratory in a fasting state and was prepped and draped in a sterile manner. The right femoral groin was infiltrated with 2% Lidocaine subcutaneous anesthesia. A 6 F sheath was inserted into the right femoral artery without difficulty. Coronary angiography was performed using coronary diagnostic catheters. The left coronary system was accessed and visualized with a 6 F Diagnostic catheter. The right coronary system was accessed and visualized with a Guided catheter. The left ventricle was accessed and visualized with a 6 F Pig tail catheter. Left ventricular/Aortic Valve gradient assessed on pullback. Left ventriculogram was performed in CURRY projection. Vessel Analysis The patient's coronary anatomy is right dominant. The left main coronary artery is a large size vessel . The left anterior descending artery is a medium size vessel . There is a 60% stenosis in the mid segment. The first diagonal branch is a medium size vessel without significant stenosis. The circumflex artery is a medium size vessel . There is a 80% stenosis in the proximal segment. The right coronary artery is a large size vessel . There is a 95% stenosis in the distal segment. with RON 2 flow. The right posterolateral branch is a medium size vessel . There is a 100% stenosis in the proximal segment. Left Ventricle The left ventricle is normal in size with decreased contractility. The left ventricular ejection fraction is estimated to be 50%. The left ventricular end diastolic pressure is 20 mmHg. There was no gradient across the aortic valve upon pullback. PCI Technique Lesion Anticoagulation was achieved with Heparin. Percutaneous coronary intervention was performed on the distal right coronary artery. The lesion stenosis prior to intervention was % with RON 2 flow. A 6 F Guide Catheter was used to engage the RCA ostium. BALLOON DILATION A Balloon catheter 2.5X12 was inserted and inflated up to 8atm for 30seconds. STENT DEPLOYMENT A drug-eluting stent 3.0X15 was inserted and inflated up to 16atm for 20seconds. Final angiography reveals 0 % stenosis with RON 3 flow. PCI Technique Lesion 2 Percutaneous Coronary Intervention was performed on the first right posterior lateral segment. The lesion stenosis prior to intervention was 100% with RON 0 flow. BALLOON DILATION A Balloon catheter 1.512 was inserted and inflated up to 8atm for 30seconds. STENT DEPLOYMENT A drug-eluting stent 2.25X12 was inserted and inflated up to 12atm for 30seconds. Conclusion Multi-vessel disease with successful PTAC and Stent of RCA and PL of RCA. Borderline LV systolic function. Recommendations Daily ASA with Plavix for at least one year Cardiac Risk Reduction Program Staged PCI of the LCx.
[2018-04-06] MEDS: Enoxaparin 40 mg Syringe SC SCH (12:26)
--- NOTE | 2018-04-06 14:32 | CP.PCM.CON ---
History of Present Illness - History of Present Illness History of Present Illness: 52-year-old female with a history of hypertension diabetes high cholesterol taking some medications, but not clear came to the emergency room with chest pain. Yesterday she went eating during the lunchtime outside, after eating she started having some discomfort in the chest, she was also having episodes of diarrhea, vomiting. She went home, following that she continues to have a symptoms of chest discomfort pain and burning sensation in the outer chest area, and vomited again.Patient's daughter immediately called ambulance, and brought to the emergency room. In the ER patient was evaluated, code heart was initiated because of the ST elevation changes in the EKG. Patient was immediately taken to the cardiac Buying Agent, patient had angiogram, and stent placement to the RCA, and she also has lesions in the LAD which probably needs to be evaluated and needed intervention later. At the time of exam, resting in chair. No new chest pain. Right groin no bleeding or hematoma. Past Patient History - Infectious Disease Hx of Infectious Diseases: None - Tetanus Immunizations Tetanus Immunization: Unknown - Past Medical History & Family History Past Medical History?: Yes - Past Social History Smoking Status: Never Smoked - CARDIAC Hx Hypercholesterolemia: Yes Hx Hypertension: Yes - PULMONARY Hx Bronchitis: Yes Hx Sleep Apnea: Yes - HEENT Hx HEENT Problems: Yes Other/Comment: HX: DEVIATED SEPTUM, ENLARGED TURBINATES, MAXILLARY SINSUS, ETHMOID SINSUS, FRONTAL SINSUS, SPHENOID SINSUS - RENAL Hx Chronic Kidney Disease: Yes - ENDOCRINE/METABOLIC Hx Endocrine Disorders: Yes Hx Diabetes Mellitus Type 1: Yes - HEMATOLOGICAL/ONCOLOGICAL Hx Human Immunodeficiency Virus (HIV): No - INTEGUMENTARY Hx Dermatological Problems: No - MUSCULOSKELETAL/RHEUMATOLOGICAL Hx Musculoskeletal Disorders: No Hx Falls: No - GASTROINTESTINAL Hx Gastritis: Yes - GENITOURINARY/GYNECOLOGICAL Hx Sexually Transmitted Disorders: No - PSYCHIATRIC Hx Substance Use: No - SURGICAL HISTORY Hx Surgeries: Yes Other/Comment: HX: FIBROID REMOVED FROM UTERUS. HX: CYST REMOVED FROM KIDNEY - ANESTHESIA Hx Anesthesia: Yes Hx Anesthesia Reactions: No Hx Malignant Hyperthermia: No Meds Allergies/Adverse Reactions: Allergies Allergy/AdvReac Type Severity Reaction Status Date / Time No Known Allergies Allergy Verified 01/23/18 20:07 - Medications Medications: Current Medications Aspirin (Aspirin) 325 mg PO DAILY [facility] Last Admin: 02/10/19 09:54 Dose: 325 mg Enoxaparin Sodium (Lovenox) 40 mg SC DAILY [facility] Last Admin: 04/06/18 12:26 Dose: 40 mg Influenza Virus Vaccine (Flucelvax Quad [id number] Syr) 60 mcg IM .ONCE ONE Stop: 04/08/18 10:01 Insulin Human Regular (Novolin R) 0 unit SC ACHS [facility]; Protocol Last Admin: 04/06/18 12:25 Dose: 3 u Losartan Potassium (Cozaar) 25 mg PO DAILY [facility] Last Admin: 04/06/18 09:54 Dose: 25 mg Pneumococcal Polyvalent Vaccine (Pneumovax 23 Vaccine) 0.5 ml IM .ONCE ONE Stop: 04/08/18 10:01 Rosuvastatin Calcium (Crestor) 5 mg PO HS [facility] Last Admin: 04/05/18 21:24 Dose: 5 mg Ticagrelor (Brilinta) 90 mg PO BID [facility] Last Admin: 04/06/18 09:54 Dose: 90 mg Physical Exam - Head Exam Head Exam: NORMOCEPHALIC - Neck Exam Neck exam: Positive for: Normal Inspection - Respiratory Exam Respiratory Exam: NORMAL BREATHING PATTERN - Cardiovascular Exam Cardiovascular Exam: REGULAR RHYTHM - GI/Abdominal Exam GI & Abdominal Exam: Normal Bowel Sounds - Extremities Exam Extremities exam: Positive for: normal inspection - Neurological Exam Neurological exam: Alert, Oriented x3 Results - Vital Signs Recent Vital Signs: Last Vital Signs Temp 98.1 F 04/06/18 12:00 Pulse 64 04/06/18 13:00 Resp 11 L 04/06/18 13:00 BP 149/80 04/06/18 12:39 Pulse Ox 100 04/06/18 13:00 - Labs Result Diagrams: 04/06/18 06:25 04/06/18 06:25 Labs: Laboratory Results - last 24 hr 04/05/18 04/05/18 04/05/18 15:38 15:38 15:38 WBC 8.2 RBC 3.56 L Hgb 10.5 L D Hct 31.1 L MCV 87.4 MCH 29.5 MCHC 33.8 RDW 14.3 Plt Count 278 MPV 8.0 Neut % (Auto) 78.7 H Lymph % (Auto) 15.6 L [place] % (Auto) 4.6 Eos % (Auto) 0.5 Baso % (Auto) 0.6 Neut # (Auto) 6.4 Lymph # (Auto) 1.3 [place] # (Auto) 0.4 Eos # (Auto) 0.0 Baso # (Auto) 0.0 Sodium 136 Potassium 3.5 L Chloride 104 Carbon Dioxide 25 Anion Gap 10 BUN 26 H Creatinine 0.9 Est GFR ( Amer) > 60 Est GFR (Non-Af Amer) > 60 POC Glucose (mg/dL) Random Glucose 280 H D Hemoglobin A1c Calcium 9.0 Phosphorus 3.9 3.9 Magnesium 2.4 H 2.3 Total Bilirubin 0.5 AST 141 H D ALT 25 Alkaline Phosphatase 75 Total Creatine Kinase 1321 H CK-MB (Mass) 34.8 H Troponin I 58.9000 H* Total Protein 6.6 Albumin 3.9 Globulin 2.7 Albumin/Globulin Ratio 1.5 Triglycerides Cholesterol LDL Cholesterol Direct HDL Cholesterol Lipase 114 04/05/18 04/05/18 04/06/18 16:49 21:09 06:25 WBC 6.3 RBC 3.48 L Hgb 10.2 L Hct 30.3 L MCV 87.2 MCH 29.2 MCHC 33.5 RDW 14.1 Plt Count 242 MPV 7.9 Neut % (Auto) 50.6 Lymph % (Auto) 39.9 [place] % (Auto) 6.3 Eos % (Auto) 2.8 Baso % (Auto) 0.4 Neut # (Auto) 3.2 Lymph # (Auto) 2.5 [place] # (Auto) 0.4 Eos # (Auto) 0.2 Baso # (Auto) 0.0 Sodium Potassium Chloride Carbon Dioxide Anion Gap BUN Creatinine Est GFR ( Amer) Est GFR (Non-Af Amer) POC Glucose (mg/dL) 262 H 224 H Random Glucose Hemoglobin A1c Calcium Phosphorus Magnesium Total Bilirubin AST ALT Alkaline Phosphatase Total Creatine Kinase CK-MB (Mass) Troponin I Total Protein Albumin Globulin Albumin/Globulin Ratio Triglycerides Cholesterol LDL Cholesterol Direct HDL Cholesterol Lipase 04/06/18 04/06/18 04/06/18 06:25 07:58 08:23 WBC RBC Hgb Hct MCV MCH MCHC RDW Plt Count MPV Neut % (Auto) Lymph % (Auto) [place] % (Auto) Eos % (Auto) Baso % (Auto) Neut # (Auto) Lymph # (Auto) [place] # (Auto) Eos # (Auto) Baso # (Auto) Sodium 138 Potassium 3.1 L Chloride 104 Carbon Dioxide 28 Anion Gap 8 L BUN 29 H Creatinine 1.1 Est GFR ( Amer) > 60 Est GFR (Non-Af Amer) 53 POC Glucose (mg/dL) 216 H Random Glucose 187 H D Hemoglobin A1c 10.2 H Calcium 8.9 Phosphorus 4.2 Magnesium 2.1 Total Bilirubin 0.6 AST 76 H D ALT 26 Alkaline Phosphatase 75 Total Creatine Kinase CK-MB (Mass) Troponin I Total Protein 6.1 L Albumin 3.5 Globulin 2.6 Albumin/Globulin Ratio 1.4 Triglycerides 256 H Cholesterol 216 H LDL Cholesterol Direct 98 HDL Cholesterol 41 Lipase 04/06/18 12:09 WBC RBC Hgb Hct MCV MCH MCHC RDW Plt Count MPV Neut % (Auto) Lymph % (Auto) [place] % (Auto) Eos % (Auto) Baso % (Auto) Neut # (Auto) Lymph # (Auto) [place] # (Auto) Eos # (Auto) Baso # (Auto) Sodium Potassium Chloride Carbon Dioxide Anion Gap BUN Creatinine Est GFR ( Amer) Est GFR (Non-Af Amer) POC Glucose (mg/dL) 279 H Random Glucose Hemoglobin A1c Calcium Phosphorus Magnesium Total Bilirubin AST ALT Alkaline Phosphatase Total Creatine Kinase CK-MB (Mass) Troponin I Total Protein Albumin Globulin Albumin/Globulin Ratio Triglycerides Cholesterol LDL Cholesterol Direct HDL Cholesterol Lipase Assessment & Plan (1) Acute CT, inferior wall Assessment and Plan: Patient with multi-vessel disease and diabetes. Successful PTCA/Stent of RCA and PL. Resting comfortably. Continue DAPT. Discussed with Dr. West. He will follow form here for further management. Discussed with patient bed side finding of Cath and follow-up. Status: Acute (2) Electrolyte abnormality Assessment and Plan: Hypokalemia, Correct electrolyte abnormalities. Keep K>4 and Mg>2. Discussed with staff. Status: Acute
[2018-04-06] MEDS ORDERED: Potassium Chloride 20 mEq ER Tab PO ONE (15:39)
--- NOTE | 2018-04-06 18:37 | CP.CCUPN ---
CCU Subjective - Physician Review Events Since Last Encounter (Free Text): 04/06/18 18:36 Chief complaint: Chest pain HPI: 52-year-old female with a history of hypertension diabetes high cholesterol taking some medications, but not clear came to the emergency room with chest pain. Yesterday she went eating during the lunchtime outside, after eating she started having some discomfort in the chest, she was also having episodes of diarrhea, vomiting She went home, following that she continues to have a symptoms of chest discomfort pain and burning sensation in the outer chest area, and vomited again. Patient's daughter immediately called ambulance, and brought to the emergency room. In the ER patient was evaluated, code heart was initiated because of the ST elevation changes in the EKG. Patient was immediately taken to the cardiac Cloth Piecer, patient had angiogram, and stent placement to the RCA, and she also has lesions in the LAD which probably needs to be evaluated and needed intervention later. On examination: Vital signs are stable. Chest good air entry Regular heart sounds noted Abdomen soft Nontender. 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 Multiple heart disease. Status post stent. Patient also needs a elective stenting for LAD. We will continue antiplatelets, anti-cholesterol medication as well as the blood pressure medications. Glucose monitoring. DVT and GI prophylaxis. OOB to chair will observe one more day in ICU CCU Objective - Vital Signs / Intake & Output Vital Signs (Last 4 hours): Vital Signs Temp Pulse Resp BP Pulse Ox 04/06/18 17:17 155/107 H 04/06/18 17:16 62 13 100 04/06/18 16:39 66 15 171/98 H 100 04/06/18 16:00 97.8 F 04/06/18 15:40 68 15 169/84 H 99 04/06/18 14:39 68 19 129/78 100 Intake and Output (Last 8hrs): Intake & Output 04/06/18 04/06/18 04/06/18 06:59 14:59 22:59 Intake Total 300 480 0 Output Total 500 0 Balance -200 480 0 Weight 166 lb Intake: Oral 300 480 0 Output: Urine 500 0 Urine, Voided 500 0 Other: # Voids Urine, Voided 1 - Medications Active Medications: Active Medications Generic Name Dose Route Start Last Admin Trade Name Everardoq PRN Reason Stop Dose Admin Aspirin 325 mg 04/05/18 10:00 04/06/18 09:54 Aspirin PO 325 mg DAILY CARISSA Administration Enoxaparin Sodium 40 mg 04/06/18 12:30 04/06/18 12:26 Lovenox SC 40 mg DAILY CARISSA Administration Influenza Virus Vaccine 60 mcg 04/08/18 10:00 Flucelvax Quad [id number] Syr IM 04/08/18 10:01 .ONCE ONE Insulin Human Regular 0 unit 04/05/18 12:19 04/06/18 17:13 Novolin R SC 2 u ACHS CARISSA Administration Protocol Losartan Potassium 25 mg 04/05/18 10:00 04/06/18 09:54 Cozaar PO 25 mg DAILY CARISSA Administration Pneumococcal Polyvalent Vaccine 0.5 ml 04/08/18 10:00 Pneumovax 23 Vaccine IM 04/08/18 10:01 .ONCE ONE Rosuvastatin Calcium 5 mg 04/05/18 22:00 04/05/18 21:24 Crestor PO 5 mg HS CARISSA Administration Ticagrelor 90 mg 04/05/18 10:00 04/06/18 17:13 Brilinta PO 90 mg BID CARISSA Administration - Patient Studies Lab Studies: Lab Studies 04/06/18 04/06/18 04/06/18 Range/Units 16:38 12:09 08:23 WBC (4.8-10.8) K/uL RBC (3.80-5.20) Mil/uL Hgb (11.0-16.0) g/dL Hct (34.0-47.0) % MCV (81.0-99.0) fL MCH (27.0-31.0) pg MCHC (33.0-37.0) g/dL RDW (11.5-14.5) % Plt Count (130-400) K/uL MPV (7.2-11.7) fL Neut % (Auto) (50.0-75.0) % Lymph % (Auto) (20.0-40.0) % [place] % (Auto) (0.0-10.0) % Eos % (Auto) (0.0-4.0) % Baso % (Auto) (0.0-2.0) % Neut # (Auto) (1.8-7.0) K/uL Lymph # (Auto) (1.0-4.3) K/uL [place] # (Auto) (0.0-0.8) K/uL Eos # (Auto) (0.0-0.7) K/uL Baso # (Auto) (0.0-0.2) K/uL Sodium (132-148) mmol/L Potassium (3.6-5.2) mmol/L Chloride (98-107) mmol/L Carbon Dioxide (22-30) mmol/L Anion Gap (10-20) BUN (7-17) mg/dL Creatinine (0.7-1.2) mg/dL Est GFR ( Amer) Est GFR (Non-Af Amer) POC Glucose (mg/dL) 248 H 279 H (65-110) mg/dL Random Glucose (65-105) mg/dL Hemoglobin A1c 10.2 H (4.2-6.5) % Calcium (8.6-10.4) mg/dl Phosphorus (2.5-4.5) mg/dL Magnesium (1.6-2.3) mg/dL Total Bilirubin (0.2-1.3) mg/dL AST (14-36) U/L ALT (9-52) U/L Alkaline Phosphatase (38-126) U/L Total Protein (6.3-8.3) g/dL Albumin (3.5-5.0) g/dL Globulin (2.2-3.9) gm/dL Albumin/Globulin Ratio (1.0-2.1) Triglycerides (0-149) mg/dL Cholesterol (0-199) mg/dL LDL Cholesterol Direct (0-129) mg/dL HDL Cholesterol (30-70) mg/dL 04/06/18 04/06/18 04/06/18 Range/Units 07:58 06:25 06:25 WBC 6.3 (4.8-10.8) K/uL RBC 3.48 L (3.80-5.20) Mil/uL Hgb 10.2 L (11.0-16.0) g/dL Hct 30.3 L (34.0-47.0) % MCV 87.2 (81.0-99.0) fL MCH 29.2 (27.0-31.0) pg MCHC 33.5 (33.0-37.0) g/dL RDW 14.1 (11.5-14.5) % Plt Count 242 (130-400) K/uL MPV 7.9 (7.2-11.7) fL Neut % (Auto) 50.6 (50.0-75.0) % Lymph % (Auto) 39.9 (20.0-40.0) % [place] % (Auto) 6.3 (0.0-10.0) % Eos % (Auto) 2.8 (0.0-4.0) % Baso % (Auto) 0.4 (0.0-2.0) % Neut # (Auto) 3.2 (1.8-7.0) K/uL Lymph # (Auto) 2.5 (1.0-4.3) K/uL [place] # (Auto) 0.4 (0.0-0.8) K/uL Eos # (Auto) 0.2 (0.0-0.7) K/uL Baso # (Auto) 0.0 (0.0-0.2) K/uL Sodium 138 (132-148) mmol/L Potassium 3.1 L (3.6-5.2) mmol/L Chloride 104 (98-107) mmol/L Carbon Dioxide 28 (22-30) mmol/L Anion Gap 8 L (10-20) BUN 29 H (7-17) mg/dL Creatinine 1.1 (0.7-1.2) mg/dL Est GFR ( Amer) > 60 Est GFR (Non-Af Amer) 53 POC Glucose (mg/dL) 216 H (65-110) mg/dL Random Glucose 187 H D (65-105) mg/dL Hemoglobin A1c (4.2-6.5) % Calcium 8.9 (8.6-10.4) mg/dl Phosphorus 4.2 (2.5-4.5) mg/dL Magnesium 2.1 (1.6-2.3) mg/dL Total Bilirubin 0.6 (0.2-1.3) mg/dL AST 76 H D (14-36) U/L ALT 26 (9-52) U/L Alkaline Phosphatase 75 (38-126) U/L Total Protein 6.1 L (6.3-8.3) g/dL Albumin 3.5 (3.5-5.0) g/dL Globulin 2.6 (2.2-3.9) gm/dL Albumin/Globulin Ratio 1.4 (1.0-2.1) Triglycerides 256 H (0-149) mg/dL Cholesterol 216 H (0-199) mg/dL LDL Cholesterol Direct 98 (0-129) mg/dL HDL Cholesterol 41 (30-70) mg/dL 04/05/18 Range/Units 21:09 WBC (4.8-10.8) K/uL RBC (3.80-5.20) Mil/uL Hgb (11.0-16.0) g/dL Hct (34.0-47.0) % MCV (81.0-99.0) fL MCH (27.0-31.0) pg MCHC (33.0-37.0) g/dL RDW (11.5-14.5) % Plt Count (130-400) K/uL MPV (7.2-11.7) fL Neut % (Auto) (50.0-75.0) % Lymph % (Auto) (20.0-40.0) % [place] % (Auto) (0.0-10.0) % Eos % (Auto) (0.0-4.0) % Baso % (Auto) (0.0-2.0) % Neut # (Auto) (1.8-7.0) K/uL Lymph # (Auto) (1.0-4.3) K/uL [place] # (Auto) (0.0-0.8) K/uL Eos # (Auto) (0.0-0.7) K/uL Baso # (Auto) (0.0-0.2) K/uL Sodium (132-148) mmol/L Potassium (3.6-5.2) mmol/L Chloride (98-107) mmol/L Carbon Dioxide (22-30) mmol/L Anion Gap (10-20) BUN (7-17) mg/dL Creatinine (0.7-1.2) mg/dL Est GFR ( Amer) Est GFR (Non-Af Amer) POC Glucose (mg/dL) 224 H (65-110) mg/dL Random Glucose (65-105) mg/dL Hemoglobin A1c (4.2-6.5) % Calcium (8.6-10.4) mg/dl Phosphorus (2.5-4.5) mg/dL Magnesium (1.6-2.3) mg/dL Total Bilirubin (0.2-1.3) mg/dL AST (14-36) U/L ALT (9-52) U/L Alkaline Phosphatase (38-126) U/L Total Protein (6.3-8.3) g/dL Albumin (3.5-5.0) g/dL Globulin (2.2-3.9) gm/dL Albumin/Globulin Ratio (1.0-2.1) Triglycerides (0-149) mg/dL Cholesterol (0-199) mg/dL LDL Cholesterol Direct (0-129) mg/dL HDL Cholesterol (30-70) mg/dL Laboratory Results - last 24 hr 04/05/18 04/06/18 04/06/18 21:09 06:25 06:25 WBC 6.3 RBC 3.48 L Hgb 10.2 L Hct 30.3 L MCV 87.2 MCH 29.2 MCHC 33.5 RDW 14.1 Plt Count 242 MPV 7.9 Neut % (Auto) 50.6 Lymph % (Auto) 39.9 [place] % (Auto) 6.3 Eos % (Auto) 2.8 Baso % (Auto) 0.4 Neut # (Auto) 3.2 Lymph # (Auto) 2.5 [place] # (Auto) 0.4 Eos # (Auto) 0.2 Baso # (Auto) 0.0 Sodium 138 Potassium 3.1 L Chloride 104 Carbon Dioxide 28 Anion Gap 8 L BUN 29 H Creatinine 1.1 Est GFR ( Amer) > 60 Est GFR (Non-Af Amer) 53 POC Glucose (mg/dL) 224 H Random Glucose 187 H D Hemoglobin A1c Calcium 8.9 Phosphorus 4.2 Magnesium 2.1 Total Bilirubin 0.6 AST 76 H D ALT 26 Alkaline Phosphatase 75 Total Protein 6.1 L Albumin 3.5 Globulin 2.6 Albumin/Globulin Ratio 1.4 Triglycerides 256 H Cholesterol 216 H LDL Cholesterol Direct 98 HDL Cholesterol 41 04/06/18 04/06/1819 07:58 08:23 12:09 WBC RBC Hgb Hct MCV MCH MCHC RDW Plt Count MPV Neut % (Auto) Lymph % (Auto) [place] % (Auto) Eos % (Auto) Baso % (Auto) Neut # (Auto) Lymph # (Auto) [place] # (Auto) Eos # (Auto) Baso # (Auto) Sodium Potassium Chloride Carbon Dioxide Anion Gap BUN Creatinine Est GFR ( Amer) Est GFR (Non-Af Amer) POC Glucose (mg/dL) 216 H 279 H Random Glucose Hemoglobin A1c 10.2 H Calcium Phosphorus Magnesium Total Bilirubin AST ALT Alkaline Phosphatase Total Protein Albumin Globulin Albumin/Globulin Ratio Triglycerides Cholesterol LDL Cholesterol Direct HDL Cholesterol 04/06/18 16:38 WBC RBC Hgb Hct MCV MCH MCHC RDW Plt Count MPV Neut % (Auto) Lymph % (Auto) [place] % (Auto) Eos % (Auto) Baso % (Auto) Neut # (Auto) Lymph # (Auto) [place] # (Auto) Eos # (Auto) Baso # (Auto) Sodium Potassium Chloride Carbon Dioxide Anion Gap BUN Creatinine Est GFR ( Amer) Est GFR (Non-Af Amer) POC Glucose (mg/dL) 248 H Random Glucose Hemoglobin A1c Calcium Phosphorus Magnesium Total Bilirubin AST ALT Alkaline Phosphatase Total Protein Albumin Globulin Albumin/Globulin Ratio Triglycerides Cholesterol LDL Cholesterol Direct HDL Cholesterol Fingerstick Blood Sugar Results: 248 Critical Care Progress Note - Nutrition Nutrition: Nutrition Category Date Time Status Heart Healthy Diet [DIET] Diets 04/05/18 Dinner Active
[2018-04-06] MEDS ORDERED: Albuterol-Ipratrop 3 mg / 0.5 (3 ml) UD INH STA (23:23)
[2018-04-07 06:16] LABS: BASO % 0.5 % (0.0-2.0); EOS # 0.3 K/uL (0.0-0.7); HEMOGLOBIN 10.6 g/dL (11.0-16.0); LYMPH # 2.2 K/uL (1.0-4.3); LYMPH % 35.2 % (20.0-40.0); MEAN CELL VOLUME 86.7 fL (81.0-99.0); MEAN CORPUSCULAR HEMOGLOBIN 29.5 pg (27.0-31.0); MEAN PLATELET VOLUME 7.7 fL (7.2-11.7); MONO # 0.4 K/uL (0.0-0.8); MONO % 6.1 % (0.0-10.0); NEUT # 3.4 K/uL (1.8-7.0); NEUT % 54.2 % (50.0-75.0); RBC 3.61 Mil/uL (3.80-5.20); WHITE BLOOD COUNT 6.3 K/uL (4.8-10.8)
[2018-04-07 06:37] LABS: ALB/GLOB RATIO 1.3 (1.0-2.1); ALBUMIN 3.8 g/dL (3.5-5.0); ALT/SGPT 26 U/L (9-52); AST/SGOT 36 U/L (14-36); BLOOD UREA NITROGEN 23 mg/dL (7-17); CALCIUM 9.2 mg/dl (8.6-10.4); GFR NON-AFRICAN AMERICAN 59
[2018-04-07] MEDS: (Novolin R) Insulin Human Regular 100 units/ml vial SC SCH ×4 (08:08→21:32)
--- NOTE | 2018-04-07 08:13 | CP.PCM.PN ---
Subjective - Date & Time of Evaluation Date of Evaluation: 04/07/18 Time of Evaluation: 08:00 - Subjective Subjective: patient has n current chest pain. Objective - Vital Signs/Intake and Output Vital Signs (last 24 hours): Temp Pulse Resp BP Pulse Ox 98.9 F 70 14 146/79 97 04/07/18 05:00 04/07/18 05:38 04/07/18 05:38 04/07/18 05:38 04/07/18 05:38 Intake and Output: 04/07/18 04/07/18 06:59 18:59 Intake Total 390 0 Balance 390 0 - Medications Medications: Current Medications Aspirin (Aspirin) 325 mg PO DAILY [facility] Last Admin: 04/06/18 09:54 Dose: 325 mg Enoxaparin Sodium (Lovenox) 40 mg SC DAILY [facility] Last Admin: 04/06/18 12:26 Dose: 40 mg Influenza Virus Vaccine (Flucelvax Quad [id number] Syr) 60 mcg IM .ONCE ONE Stop: 04/08/18 10:01 Insulin Human Regular (Novolin R) 0 unit SC [facility]; Protocol Last Admin: 04/07/18 08:08 Dose: 2 u Losartan Potassium (Cozaar) 25 mg PO DAILY [facility] Last Admin: 04/06/18 09:54 Dose: 25 mg Pneumococcal Polyvalent Vaccine (Pneumovax 23 Vaccine) 0.5 ml IM .ONCE ONE Stop: 04/08/18 10:01 Rosuvastatin Calcium (Crestor) 5 mg PO [facility] Last Admin: 04/06/18 21:59 Dose: 5 mg Ticagrelor (Brilinta) 90 mg PO BID [facility] Last Admin: 04/06/18 17:13 Dose: 90 mg - Labs Labs: 04/07/18 06:11 04/07/18 06:09 PT 11.7 SECONDS (9.7-12.2) 04/05/18 05:33 INR 1.1 04/05/18 05:33 APTT 26 SECONDS (21-34) 04/05/18 05:33 - Constitutional Appears: Non-toxic - Head Exam Head Exam: NORMAL INSPECTION - Eye Exam Eye Exam: Normal appearance - ENT Exam ENT Exam: Mucous Membranes Moist - Neck Exam Neck Exam: Full ROM - Respiratory Exam Respiratory Exam: NORMAL BREATHING PATTERN - Cardiovascular Exam Cardiovascular Exam: REGULAR RHYTHM - GI/Abdominal Exam GI & Abdominal Exam: Normal Bowel Sounds - Rectal Exam Rectal Exam: Deferred - Extremities Exam Extremities Exam: absent: Pedal Edema - Back Exam Back Exam: NORMAL INSPECTION - Neurological Exam Neurological Exam: Alert - Psychiatric Exam Psychiatric exam: Normal Affect - Skin Skin Exam: Normal Color Assessment and Plan (1) CAD (coronary artery disease) Assessment & Plan: patient has moderate stenosis of the left circumflex. recommend FFR to assess if stenting is indicated. will transfer to [facility] [place] tomorrow for FFR, possible PCI. Status: Acute (2) Acute OH, inferior wall Assessment & Plan: no current angina. maintain statin therapy, antiplatelet therapy. Status: Acute
--- NOTE | 2018-04-07 08:36 | HP ---
HISTORY OF PRESENT ILLNESS: Sabrina Nunez is a 52-year-old female with a history of chest pain. The patient came to the ER, advised admission. PHYSICAL EXAMINATION: GENERAL: The patient is awake, alert, oriented. VITAL SIGNS: Temperature is 98, pulse 90. HEENT: Within normal limits. NECK: Supple. CHEST: Symmetrical. HEART: Regular. ABDOMEN: Soft. EXTREMITIES: No edema. IMPRESSION AND PLAN: The patient suffers from myocardial infarction. The patient was placed on bed rest, supportive care. Cardiac . Minnie Her MD
--- NOTE | 2018-04-07 08:45 | CP.CCUPN ---
CCU Subjective - Physician Review Subjective (Free Text): 04/07/18 15:30 Critical Care Progress Note for Dr. Lua. Patient seen and examined at bedside. No acute events reported overnight. Patient states she is feeling better but continues to have some pressure like, non-radiating chest pain. Pain began this morning following hearing the recommendation from the engineering manager electronics that she will need to be transferred to [facility] [place] workup. Patient denies SOB, abdominal pain, N/V, F/C, dysuria, hematuria. 04/07/18 16:59 CCU Objective - Vital Signs / Intake & Output Vital Signs (Last 4 hours): Vital Signs Temp Pulse Resp BP Pulse Ox 04/07/18 08:09 89 17 166/88 H 04/07/18 08:00 95 H 16 04/07/18 07:38 66 19 132/76 04/07/18 07:08 72 22 144/82 04/07/18 07:00 76 24 04/07/18 06:39 74 20 146/82 04/07/18 06:09 69 20 158/82 H 98 04/07/18 06:00 71 19 97 04/07/18 05:38 70 14 146/79 97 04/07/18 05:09 69 17 143/73 99 04/07/18 05:00 98.9 F 99 Intake and Output (Last 8hrs): Intake & Output 04/06/18 04/07/18 04/07/18 22:59 06:59 14:59 Intake Total 390 0 0 Balance 390 0 0 Weight 164 lb Intake: Oral 390 0 0 Other: # Voids Urine, Voided 1 1 - Physical Exam Head: Positive for: Atraumatic Extroacular Muscles: Positive for: EOMI Conjunctiva: Positive for: Normal Mouth: Positive for: Moist Mucous Membranes Neck: Positive for: Normal Range of Motion Respiratory/Chest: Positive for: Good Air Exchange. Negative for: Respiratory Distress Cardiovascular: Positive for: Normal S1, S2 Abdomen: Positive for: Normal Bowel Sounds. Negative for: Tenderness, Distention Upper Extremity: Positive for: Normal Inspection Lower Extremity: Positive for: Normal Inspection. Negative for: Edema Neurological: Positive for: GCS=15 Skin: Positive for: Warm, Dry Psychiatric: Positive for: Alert, Oriented x 3 - Medications Active Medications: Active Medications Generic Name Dose Route Start Last Admin Trade Name Freq PRN Reason Stop Dose Admin Aspirin 325 mg 04/05/18 10:00 04/06/18 09:54 Aspirin PO 325 mg DAILY CARISSA Administration Enoxaparin Sodium 40 mg 04/06/18 12:30 04/06/18 12:26 Lovenox SC 40 mg DAILY CARISSA Administration Influenza Virus Vaccine 60 mcg 04/08/18 10:00 Flucelvax Quad [id number] Syr IM 04/08/18 10:01 .ONCE ONE Insulin Human Regular 0 unit 04/05/18 12:19 04/07/18 08:08 Novolin R SC 2 u ACHS CARISSA Administration Protocol Losartan Potassium 25 mg 04/05/18 10:00 04/06/18 09:54 Cozaar PO 25 mg DAILY CARISSA Administration Pneumococcal Polyvalent Vaccine 0.5 ml 04/08/18 10:00 Pneumovax 23 Vaccine IM 04/08/18 10:01 .ONCE ONE Rosuvastatin Calcium 5 mg 04/05/18 22:00 04/06/18 21:59 Crestor PO 5 mg HS CARISSA Administration Ticagrelor 90 mg 04/05/18 10:00 04/06/18 17:13 Brilinta PO 90 mg BID CARISSA Administration - Patient Studies Lab Studies: Microbiology Studies 04/05/18 15:38 MRSA Culture (Admit) - Final Naris MRSA NOT DETECTED Lab Studies 04/07/18 04/07/18 04/07/18 Range/Units 07:31 06:11 06:09 WBC 6.3 (4.8-10.8) K/uL RBC 3.61 L (3.80-5.20) Mil/uL Hgb 10.6 L (11.0-16.0) g/dL Hct 31.3 L (34.0-47.0) % MCV 86.7 (81.0-99.0) fL MCH 29.5 (27.0-31.0) pg MCHC 34.0 (33.0-37.0) g/dL RDW 14.0 (11.5-14.5) % Plt Count 272 (130-400) K/uL MPV 7.7 (7.2-11.7) fL Neut % (Auto) 54.2 (50.0-75.0) % Lymph % (Auto) 35.2 (20.0-40.0) % [place] % (Auto) 6.1 (0.0-10.0) % Eos % (Auto) 4.0 (0.0-4.0) % Baso % (Auto) 0.5 (0.0-2.0) % Neut # (Auto) 3.4 (1.8-7.0) K/uL Lymph # (Auto) 2.2 (1.0-4.3) K/uL [place] # (Auto) 0.4 (0.0-0.8) K/uL Eos # (Auto) 0.3 (0.0-0.7) K/uL Baso # (Auto) 0.0 (0.0-0.2) K/uL Sodium 137 (132-148) mmol/L Potassium 3.7 (3.6-5.2) mmol/L Chloride 104 (98-107) mmol/L Carbon Dioxide 26 (22-30) mmol/L Anion Gap 10 (10-20) BUN 23 H (7-17) mg/dL Creatinine 1.0 (0.7-1.2) mg/dL Est GFR ( Amer) > 60 Est GFR (Non-Af Amer) 59 POC Glucose (mg/dL) 226 H (65-110) mg/dL Random Glucose 213 H (65-105) mg/dL Hemoglobin A1c (4.2-6.5) % Calcium 9.2 (8.6-10.4) mg/dl Phosphorus 3.7 (2.5-4.5) mg/dL Magnesium 2.2 (1.6-2.3) mg/dL Total Bilirubin 0.7 (0.2-1.3) mg/dL AST 36 D (14-36) U/L ALT 26 (9-52) U/L Alkaline Phosphatase 85 (38-126) U/L Total Protein 6.7 (6.3-8.3) g/dL Albumin 3.8 (3.5-5.0) g/dL Globulin 2.9 (2.2-3.9) gm/dL Albumin/Globulin Ratio 1.3 (1.0-2.1) 04/06/18 04/06/18 04/06/18 Range/Units 20:55 16:38 12:09 WBC (4.8-10.8) K/uL RBC (3.80-5.20) Mil/uL Hgb (11.0-16.0) g/dL Hct (34.0-47.0) % MCV (81.0-99.0) fL MCH (27.0-31.0) pg MCHC (33.0-37.0) g/dL RDW (11.5-14.5) % Plt Count (130-400) K/uL MPV (7.2-11.7) fL Neut % (Auto) (50.0-75.0) % Lymph % (Auto) (20.0-40.0) % [place] % (Auto) (0.0-10.0) % Eos % (Auto) (0.0-4.0) % Baso % (Auto) (0.0-2.0) % Neut # (Auto) (1.8-7.0) K/uL Lymph # (Auto) (1.0-4.3) K/uL [place] # (Auto) (0.0-0.8) K/uL Eos # (Auto) (0.0-0.7) K/uL Baso # (Auto) (0.0-0.2) K/uL Sodium (132-148) mmol/L Potassium (3.6-5.2) mmol/L Chloride (98-107) mmol/L Carbon Dioxide (22-30) mmol/L Anion Gap (10-20) BUN (7-17) mg/dL Creatinine (0.7-1.2) mg/dL Est GFR ( Amer) Est GFR (Non-Af Amer) POC Glucose (mg/dL) 242 H 248 H 279 H (65-110) mg/dL Random Glucose (65-105) mg/dL Hemoglobin A1c (4.2-6.5) % Calcium (8.6-10.4) mg/dl Phosphorus (2.5-4.5) mg/dL Magnesium (1.6-2.3) mg/dL Total Bilirubin (0.2-1.3) mg/dL AST (14-36) U/L ALT (9-52) U/L Alkaline Phosphatase (38-126) U/L Total Protein (6.3-8.3) g/dL Albumin (3.5-5.0) g/dL Globulin (2.2-3.9) gm/dL Albumin/Globulin Ratio (1.0-2.1) 04/06/18 Range/Units 08:23 WBC (4.8-10.8) K/uL RBC (3.80-5.20) Mil/uL Hgb (11.0-16.0) g/dL Hct (34.0-47.0) % MCV (81.0-99.0) fL MCH (27.0-31.0) pg MCHC (33.0-37.0) g/dL RDW (11.5-14.5) % Plt Count (130-400) K/uL MPV (7.2-11.7) fL Neut % (Auto) (50.0-75.0) % Lymph % (Auto) (20.0-40.0) % [place] % (Auto) (0.0-10.0) % Eos % (Auto) (0.0-4.0) % Baso % (Auto) (0.0-2.0) % Neut # (Auto) (1.8-7.0) K/uL Lymph # (Auto) (1.0-4.3) K/uL [place] # (Auto) (0.0-0.8) K/uL Eos # (Auto) (0.0-0.7) K/uL Baso # (Auto) (0.0-0.2) K/uL Sodium (132-148) mmol/L Potassium (3.6-5.2) mmol/L Chloride (98-107) mmol/L Carbon Dioxide (22-30) mmol/L Anion Gap (10-20) BUN (7-17) mg/dL Creatinine (0.7-1.2) mg/dL Est GFR ( Amer) Est GFR (Non-Af Amer) POC Glucose (mg/dL) (65-110) mg/dL Random Glucose (65-105) mg/dL Hemoglobin A1c 10.2 H (4.2-6.5) % Calcium (8.6-10.4) mg/dl Phosphorus (2.5-4.5) mg/dL Magnesium (1.6-2.3) mg/dL Total Bilirubin (0.2-1.3) mg/dL AST (14-36) U/L ALT (9-52) U/L Alkaline Phosphatase (38-126) U/L Total Protein (6.3-8.3) g/dL Albumin (3.5-5.0) g/dL Globulin (2.2-3.9) gm/dL Albumin/Globulin Ratio (1.0-2.1) Laboratory Results - last 24 hr 04/06/18 04/06/18 04/06/18 08:23 12:09 16:38 WBC RBC Hgb Hct MCV MCH MCHC RDW Plt Count MPV Neut % (Auto) Lymph % (Auto) [place] % (Auto) Eos % (Auto) Baso % (Auto) Neut # (Auto) Lymph # (Auto) [place] # (Auto) Eos # (Auto) Baso # (Auto) Sodium Potassium Chloride Carbon Dioxide Anion Gap BUN Creatinine Est GFR ( Amer) Est GFR (Non-Af Amer) POC Glucose (mg/dL) 279 H 248 H Random Glucose Hemoglobin A1c 10.2 H Calcium Phosphorus Magnesium Total Bilirubin AST ALT Alkaline Phosphatase Total Protein Albumin Globulin Albumin/Globulin Ratio 04/06/18 04/07/18 04/07/18 20:55 06:09 06:11 WBC 6.3 RBC 3.61 L Hgb 10.6 L Hct 31.3 L MCV 86.7 MCH 29.5 MCHC 34.0 RDW 14.0 Plt Count 272 MPV 7.7 Neut % (Auto) 54.2 Lymph % (Auto) 35.2 [place] % (Auto) 6.1 Eos % (Auto) 4.0 Baso % (Auto) 0.5 Neut # (Auto) 3.4 Lymph # (Auto) 2.2 [place] # (Auto) 0.4 Eos # (Auto) 0.3 Baso # (Auto) 0.0 Sodium 137 Potassium 3.7 Chloride 104 Carbon Dioxide 26 Anion Gap 10 BUN 23 H Creatinine 1.0 Est GFR ( Amer) > 60 Est GFR (Non-Af Amer) 59 POC Glucose (mg/dL) 242 H Random Glucose 213 H Hemoglobin A1c Calcium 9.2 Phosphorus 3.7 Magnesium 2.2 Total Bilirubin 0.7 AST 36 D ALT 26 Alkaline Phosphatase 85 Total Protein 6.7 Albumin 3.8 Globulin 2.9 Albumin/Globulin Ratio 1.3 04/07/18 07:31 WBC RBC Hgb Hct MCV MCH MCHC RDW Plt Count MPV Neut % (Auto) Lymph % (Auto) [place] % (Auto) Eos % (Auto) Baso % (Auto) Neut # (Auto) Lymph # (Auto) [place] # (Auto) Eos # (Auto) Baso # (Auto) Sodium Potassium Chloride Carbon Dioxide Anion Gap BUN Creatinine Est GFR ( Amer) Est GFR (Non-Af Amer) POC Glucose (mg/dL) 226 H Random Glucose Hemoglobin A1c Calcium Phosphorus Magnesium Total Bilirubin AST ALT Alkaline Phosphatase Total Protein Albumin Globulin Albumin/Globulin Ratio Fingerstick Blood Sugar Results: 226 Review of Systems - Constitutional Constitutional: absent: Fever, Chills, Sweats, Weakness - EENT Eyes: UNREMARKABLE Ears: UNREMARKABLE Nose/Mouth/Throat: UNREMARKABLE - Breasts Breasts: UNREMARKABLE - Cardiovascular Cardiovascular: Chest Pain at Rest. absent: Dyspnea, Dyspnea on Exertion - Respiratory Respiratory: UNREMARKABLE. absent: Dyspnea on Exertion - Gastrointestinal Gastrointestinal: UNREMARKABLE - Genitourinary Genitourinary: UNREMARKABLE - Reproductive: Female Reproductive:Female: UNREMARKABLE - Musculoskeletal Musculoskeletal: UNREMARKABLE - Integumentary Integumentary: UNREMARKABLE - Neurological Neurological: UNREMARKABLE - Psychiatric Psychiatric: UNREMARKABLE - Endocrine Endocrine: UNREMARKABLE - Hematologic/Lymphatic Hematologic: UNREMARKABLE Critical Care Progress Note - Prophylaxis GI Prophylaxis GI: Not Indicated - Prophylaxis DVT Prophylaxis DVT: Lovenox - Nutrition Nutrition: Nutrition Category Date Time Status Heart Healthy Diet [DIET] Diets 04/05/18 Dinner Active Assessment/Plan - Assessment and Plan (Free Text) Assessment: 52 F w/ PMhx of DM, HLD, s/p RCA stent placement for 95% stenosis, LAD 65% & Left circumflex 80% Plan: Neuro: - A&O x 3 Cardiac: - s/p RCA stenting - c/w aspirin 325 PO daily, brilinta 90 po BID, crestor 5 mg po HS - pt scheduled for [place] [facility] [place]07 [place] PCI - hx of HTN; c/w cozaar 25 po daily, metoprolol 25 po BID - EKG 04/07: rate 81 bpm, w/ atrial ectopic beats, t wave inversions II, III, AVF - nitro 5mcg/ min Pulm - CXR 04/05: no acute disease GI - tolerating diet - NPO afte lunch 04/08 - Abd/pelvis U/S: renal cysts on L kidney (complex & simple) - may require outpatient follow up Renal - BUN/Cr 23/1.0 - continue to monitor - Abd/pelvis U/S: renal cysts on L kidney (complex & simple) - may require outpatient follow up Endo - hx of diabetes - ISS Heme - H/H 10.6/31.6 (12.6/37.9) - acute anemic changes likely s/p procedure - asymptomatic - will continue to monitor ID - afebrile - continue to monitor PPx - GI ppx not indicated - DVT ppx: SCDs, Lovenox 40 SC daily
[2018-04-07] MEDS ORDERED: Nitroglycerin 50mg in D5W 50 MG/250 ML BOTTLE IV SCH (09:30)
[2018-04-07] MEDS: Potassium Chloride 20 mEq ER Tab PO SCH (09:36)
[2018-04-07] MEDS: Enoxaparin 40 mg Syringe SC SCH (09:37)
--- NOTE | 2018-04-07 14:45 | CARD ---
APPROVED REPORT Date of service: 04/05/2018 EKG Measurement Heart [id number] <Conclusion> Sinus bradycardia ST & T wave abnormality, consider lateral ischemia Abnormal ECG
--- NOTE | 2018-04-07 14:46 | CARD ---
APPROVED REPORT Date of service: 04/05/2018 EKG Measurement Heart [id number] <Conclusion> Age and gender specific ECG analysis Normal sinus rhythm with sinus arrhythmia ST elevation, consider inferior injury or acute infarct ACUTE OH / STEMI Consider right ventricular involvement in acute inferior infarct Abnormal ECG
[2018-04-07] MEDS ORDERED: Sodium Chloride 0.9% Inh Soln (3mL) UD INH ONE (22:57)
[2018-04-08] MEDS ORDERED: Enalaprilat 2.5 MG/2 ML IV ONE (06:05)
[2018-04-08 06:19] LABS: BASO % 0.6 % (0.0-2.0); EOS # 0.2 K/uL (0.0-0.7); EOS % 2.9 % (0.0-4.0); HEMOGLOBIN 10.4 g/dL (11.0-16.0); LYMPH # 1.2 K/uL (1.0-4.3); LYMPH % 19.9 % (20.0-40.0); MEAN CELL VOLUME 86.3 fL (81.0-99.0); MEAN CORPUSCULAR HEMOGLOBIN 29.3 pg (27.0-31.0); MEAN PLATELET VOLUME 7.5 fL (7.2-11.7); MONO # 0.3 K/uL (0.0-0.8); MONO % 4.4 % (0.0-10.0); NEUT # 4.4 K/uL (1.8-7.0); NEUT % 72.2 % (50.0-75.0); RBC 3.55 Mil/uL (3.80-5.20); RED CELL DISTRIBUTION WIDTH 13.9 % (11.5-14.5); WHITE BLOOD COUNT 6.2 K/uL (4.8-10.8)
[2018-04-08 06:39] LABS: ALB/GLOB RATIO 1.4 (1.0-2.1); ALBUMIN 3.9 g/dL (3.5-5.0); ALT/SGPT 18 U/L (9-52); AST/SGOT 31 U/L (14-36); BLOOD UREA NITROGEN 17 mg/dL (7-17); CALCIUM 9.1 mg/dl (8.6-10.4); GFR NON-AFRICAN AMERICAN > 60
[2018-04-08] MEDS: (Novolin R) Insulin Human Regular 100 units/ml vial SC SCH ×2 (08:48→13:04)
[2018-04-08] MEDS ORDERED: Promethazine DM 6.25 mg-15 mg/5 ml Syrup PO SCH (09:45)
[2018-04-08] MEDS: Potassium Chloride 20 mEq ER Tab PO SCH (09:57)
[2018-04-08] MEDS: Enoxaparin 40 mg Syringe SC SCH (09:59)
[2018-04-08] MEDS ORDERED: Influenza Vaccine 60 mcg/0.5 mL SYR (4YR UP) IM ONE (10:00)
[2018-04-08] MEDS ORDERED: Pneumococcal 23-Valent Vaccine IM ONE (10:00)
[2018-04-08 13:07] VITALS: TEMP 99
[2018-04-08] MEDS ORDERED: Labetalol 5mg/ml (4ml) IV STA (15:21)
[2018-04-08 15:22] VITALS: BP 157/91; PULSE 83; RESP 19; O2SAT 99
--- NOTE | 2018-04-08 15:43 | RAD ---
Date of service: 04/08/2018 HISTORY: Congestion COMPARISON: 04/05/2018 FINDINGS: LUNGS: Lung volumes low-normal No consolidation. PLEURA: No significant pleural effusion identified, no pneumothorax apparent. CARDIOVASCULAR: No aortic atherosclerotic calcification present. Mild cardiomegaly No significant appearing pulmonary venous congestion. OSSEOUS STRUCTURES: No significant abnormalities. VISUALIZED UPPER ABDOMEN: Normal. OTHER FINDINGS: None. IMPRESSION: Cardiomegaly-similar. No pulmonary infiltrates seen. Other findings as above.
--- NOTE | 2018-04-08 17:32 | CP.CCUPN ---
<ManningBelgicaAlexey M - Last Filed: 04/08/18 17:30> CCU Subjective - Physician Review Subjective (Free Text): Critical Care Progress Note for Dr. Burns Patient seen and examined at bedside. No acute events reported overnight. Patient states she is feeling better and her chest pressure has resolved from yesterday. Patient is complaining of nasal congestion and cough, cold like symptoms that began yesterday. Patient denies SOB, abdominal pain, N/V, F/C, dysuria, hematuria. Patient scheduled for FFR @ [facility] later today. 04/08/18 17:32 CCU Objective - Vital Signs / Intake & Output Vital Signs (Last 4 hours): Vital Signs Pulse Resp BP Pulse Ox 04/08/18 14:30 83 19 99 04/08/18 14:22 81 19 157/91 H 98 04/08/18 14:00 82 20 96 Intake and Output (Last 8hrs): Intake & Output 04/08/18 04/08/18 04/08/18 06:59 14:59 22:59 Intake Total 114 120 Output Total 700 200 0 Balance -586 -80 0 Intake: IV 72 Intake, IV Amount 42 Left Forearm 42 Oral 120 Output: Urine 700 200 0 Urine, Voided 700 200 0 Stool 0 - Physical Exam Head: Positive for: Atraumatic Extroacular Muscles: Positive for: EOMI Conjunctiva: Positive for: Normal Mouth: Positive for: Moist Mucous Membranes Neck: Positive for: Normal Range of Motion Respiratory/Chest: Positive for: Good Air Exchange. Negative for: Respiratory Distress Cardiovascular: Positive for: Normal S1, S2 Abdomen: Positive for: Normal Bowel Sounds. Negative for: Tenderness, Distention Upper Extremity: Positive for: Normal Inspection Lower Extremity: Positive for: Normal Inspection. Negative for: Edema Neurological: Positive for: GCS=15 Skin: Positive for: Warm, Dry Psychiatric: Positive for: Alert, Oriented x 3 - Medications Active Medications: Active Medications Generic Name Dose Route Start Last Admin Trade Name Freq PRN Reason Stop Dose Admin Acetaminophen 650 mg 04/08/18 06:27 04/08/18 06:33 Tylenol 325mg Tab PO 650 mg Q6 PRN Administration Fever >100.4 F Aspirin 81 mg 04/08/18 09:35 04/08/18 09:57 Aspirin Chewable PO 81 mg DAILY CARISSA Administration Enoxaparin Sodium 40 mg 04/06/18 12:30 04/08/18 09:59 Lovenox SC Not Given DAILY CARISSA Nitroglycerin/Dextrose 50 mg in 250 mls @ 1.5 mls/hr 04/07/18 09:30 04/08/18 02:08 Nitroglycerin 50 Mg/250 Ml D5w IV 15 mcg/min .Q24H CARISSA 4.5 mls/hr Titration Protocol 5 MCG/MIN Insulin Human Regular 0 unit 04/07/18 09:25 04/08/18 13:04 Novolin R SC 8 u ACHS CARISSA Administration Protocol Losartan Potassium 25 mg 04/05/18 10:00 04/08/18 10:00 Cozaar PO 25 mg DAILY CARISSA Administration Metoprolol Tartrate 25 mg 04/07/18 10:00 04/08/18 09:58 Lopressor PO 25 mg BID CARISSA Administration Potassium Chloride 40 meq 04/07/18 10:00 04/08/18 09:57 K-Dur 20 Meq Er Tab PO 40 meq DAILY CARISSA Administration Promethazine HCl/Dextromethorphan 5 ml 04/08/18 09:45 04/08/18 10:11 Phenergan Dm Syrup PO 5 ml Q6H CARISSA Administration Rosuvastatin Calcium 5 mg 04/05/18 22:00 04/07/18 21:34 Crestor PO 5 mg HS CARISSA Administration Ticagrelor 90 mg 04/05/18 10:00 04/08/18 09:58 Brilinta PO 90 mg BID CARISSA Administration - Patient Studies Lab Studies: Lab Studies 04/08/18 04/08/18 04/08/18 Range/Units 11:20 10:22 07:26 WBC (4.8-10.8) K/uL RBC (3.80-5.20) Mil/uL Hgb (11.0-16.0) g/dL Hct (34.0-47.0) % MCV (81.0-99.0) fL MCH (27.0-31.0) pg MCHC (33.0-37.0) g/dL RDW (11.5-14.5) % Plt Count (130-400) K/uL MPV (7.2-11.7) fL Neut % (Auto) (50.0-75.0) % Lymph % (Auto) (20.0-40.0) % Jewell % (Auto) (0.0-10.0) % Eos % (Auto) (0.0-4.0) % Baso % (Auto) (0.0-2.0) % Neut # (Auto) (1.8-7.0) K/uL Lymph # (Auto) (1.0-4.3) K/uL Jewell # (Auto) (0.0-0.8) K/uL Eos # (Auto) (0.0-0.7) K/uL Baso # (Auto) (0.0-0.2) K/uL Sodium (132-148) mmol/L Potassium (3.6-5.2) mmol/L Chloride (98-107) mmol/L Carbon Dioxide (22-30) mmol/L Anion Gap (10-20) BUN (7-17) mg/dL Creatinine (0.7-1.2) mg/dL Est GFR ( Amer) Est GFR (Non-Af Amer) POC Glucose (mg/dL) 355 H 227 H (65-110) mg/dL Random Glucose (65-105) mg/dL Calcium (8.6-10.4) mg/dl Phosphorus (2.5-4.5) mg/dL Magnesium (1.6-2.3) mg/dL Total Bilirubin (0.2-1.3) mg/dL AST (14-36) U/L ALT (9-52) U/L Alkaline Phosphatase (38-126) U/L Total Protein (6.3-8.3) g/dL Albumin (3.5-5.0) g/dL Globulin (2.2-3.9) gm/dL Albumin/Globulin Ratio (1.0-2.1) Influenza Typ A,B (EIA) Negative for flu a/b (NEGATIVE) 04/08/18 04/08/18 04/07/18 Range/Units 06:16 06:16 21:03 WBC 6.2 (4.8-10.8) K/uL RBC 3.55 L (3.80-5.20) Mil/uL Hgb 10.4 L (11.0-16.0) g/dL Hct 30.7 L (34.0-47.0) % MCV 86.3 (81.0-99.0) fL MCH 29.3 (27.0-31.0) pg MCHC 34.0 (33.0-37.0) g/dL RDW 13.9 (11.5-14.5) % Plt Count 252 (130-400) K/uL MPV 7.5 (7.2-11.7) fL Neut % (Auto) 72.2 (50.0-75.0) % Lymph % (Auto) 19.9 L (20.0-40.0) % Jewell % (Auto) 4.4 (0.0-10.0) % Eos % (Auto) 2.9 (0.0-4.0) % Baso % (Auto) 0.6 (0.0-2.0) % Neut # (Auto) 4.4 (1.8-7.0) K/uL Lymph # (Auto) 1.2 (1.0-4.3) K/uL Jewell # (Auto) 0.3 (0.0-0.8) K/uL Eos # (Auto) 0.2 (0.0-0.7) K/uL Baso # (Auto) 0.0 (0.0-0.2) K/uL Sodium 135 (132-148) mmol/L Potassium 3.8 (3.6-5.2) mmol/L Chloride 104 (98-107) mmol/L Carbon Dioxide 28 (22-30) mmol/L Anion Gap 7 L (10-20) BUN 17 (7-17) mg/dL Creatinine 0.9 (0.7-1.2) mg/dL Est GFR ( Amer) > 60 Est GFR (Non-Af Amer) > 60 POC Glucose (mg/dL) 150 H (65-110) mg/dL Random Glucose 222 H (65-105) mg/dL Calcium 9.1 (8.6-10.4) mg/dl Phosphorus 3.6 (2.5-4.5) mg/dL Magnesium 2.0 (1.6-2.3) mg/dL Total Bilirubin 0.6 (0.2-1.3) mg/dL AST 31 (14-36) U/L ALT 18 (9-52) U/L Alkaline Phosphatase 84 (38-126) U/L Total Protein 6.7 (6.3-8.3) g/dL Albumin 3.9 (3.5-5.0) g/dL Globulin 2.8 (2.2-3.9) gm/dL Albumin/Globulin Ratio 1.4 (1.0-2.1) Influenza Typ A,B (EIA) (NEGATIVE) Laboratory Results - last 24 hr 04/07/18 04/08/18 04/08/18 21:03 06:16 06:16 WBC 6.2 RBC 3.55 L Hgb 10.4 L Hct 30.7 L MCV 86.3 MCH 29.3 MCHC 34.0 RDW 13.9 Plt Count 252 MPV 7.5 Neut % (Auto) 72.2 Lymph % (Auto) 19.9 L Jewell % (Auto) 4.4 Eos % (Auto) 2.9 Baso % (Auto) 0.6 Neut # (Auto) 4.4 Lymph # (Auto) 1.2 Jewell # (Auto) 0.3 Eos # (Auto) 0.2 Baso # (Auto) 0.0 Sodium 135 Potassium 3.8 Chloride 104 Carbon Dioxide 28 Anion Gap 7 L BUN 17 Creatinine 0.9 Est GFR ( Amer) > 60 Est GFR (Non-Af Amer) > 60 POC Glucose (mg/dL) 150 H Random Glucose 222 H Calcium 9.1 Phosphorus 3.6 Magnesium 2.0 Total Bilirubin 0.6 AST 31 ALT 18 Alkaline Phosphatase 84 Total Protein 6.7 Albumin 3.9 Globulin 2.8 Albumin/Globulin Ratio 1.4 Influenza Typ A,B (EIA) 04/08/18 04/08/18 04/08/18 07:26 10:22 11:20 WBC RBC Hgb Hct MCV MCH MCHC RDW Plt Count MPV Neut % (Auto) Lymph % (Auto) Jewell % (Auto) Eos % (Auto) Baso % (Auto) Neut # (Auto) Lymph # (Auto) Jewell # (Auto) Eos # (Auto) Baso # (Auto) Sodium Potassium Chloride Carbon Dioxide Anion Gap BUN Creatinine Est GFR ( Amer) Est GFR (Non-Af Amer) POC Glucose (mg/dL) 227 H 355 H Random Glucose Calcium Phosphorus Magnesium Total Bilirubin AST ALT Alkaline Phosphatase Total Protein Albumin Globulin Albumin/Globulin Ratio Influenza Typ A,B (EIA) Negative for flu a/b Radiology Impressions: Radiology Impressions Chest X-Ray 04/08/18 06:00 IMPRESSION: Cardiomegaly-similar. No pulmonary infiltrates seen. Other findings as above. Fingerstick Blood Sugar Results: 355 Review of Systems - Constitutional Constitutional: absent: Fever, Chills, Sweats, Weakness - EENT Eyes: UNREMARKABLE. absent: Change in Vision Ears: UNREMARKABLE Nose/Mouth/Throat: Nasal Congestion - Cardiovascular Cardiovascular: UNREMARKABLE. absent: Chest Pain - Respiratory Respiratory: UNREMARKABLE. absent: Cough, Dyspnea - Gastrointestinal Gastrointestinal: UNREMARKABLE. absent: Abdominal Pain, Bloating - Genitourinary Genitourinary: UNREMARKABLE. absent: Difficulty Urinating, Hematuria - Integumentary Integumentary: UNREMARKABLE. absent: Acne, Alopecia - Neurological Neurological: UNREMARKABLE. absent: Abnormal Gait, Abnormal Hearing - Psychiatric Psychiatric: UNREMARKABLE - Endocrine Endocrine: UNREMARKABLE - Hematologic/Lymphatic Hematologic: UNREMARKABLE Critical Care Progress Note - Prophylaxis GI Prophylaxis GI: Not Indicated - Prophylaxis DVT Prophylaxis DVT: Heparin SQ, Lovenox - Nutrition Nutrition: Nutrition Category Date Time Status NPO Diet [DIET] Diets 04/08/18 Lunch Active Assessment/Plan - Assessment and Plan (Free Text) Assessment: 52 F w/ PMhx of DM, HLD, s/p RCA stent placement for 95% stenosis, LAD 65% & Left circumflex 80%, scheduled for FFR later today at [facility]. Plan: Neuro: - A&O x 3 Cardiac: - s/p RCA stenting on 04/05 - c/w aspirin 81 PO daily, brilinta 90 po BID, crestor 5 mg po HS - pt scheduled for transfer to [facility] today 04/08 for FFR - hx of HTN; c/w cozaar 25 po daily, metoprolol 25 po BID - EKG 04/07: rate 81 bpm, w/ atrial ectopic beats, t wave inversions II, III, AVF - d/c nitro 5mcg/ min Pulm - CXR 04/08: no acute disease GI - tolerating diet - NPO after lunch 04/08 - Abd/pelvis U/S: renal cysts on L kidney (complex & simple) - may require outpatient follow up Renal - BUN/Cr 17/0.9 - continue to monitor - Abd/pelvis U/S: renal cysts on L kidney (complex & simple) - may require outpatient follow up Endo - hx of diabetes - ISS Heme - H/H 10.4/30.7 (12.6/37.9 on admission) - acute anemic changes likely s/p procedure - asymptomatic - will continue to monitor ID - afebrile - continue to monitor PPx - GI ppx not indicated - DVT ppx: SCDs, Lovenox 40 SC daily <Cheikh Burns - Last Filed: 04/08/18 18:06> CCU Subjective - Physician Review Critical Care Time Spent (in minutes): 40 CCU Objective - Vital Signs / Intake & Output Vital Signs (Last 4 hours): Vital Signs Pulse Resp BP Pulse Ox 04/08/18 14:30 83 19 99 04/08/18 14:22 81 19 157/91 H 98 Intake and Output (Last 8hrs): Intake & Output 04/08/18 04/08/18 04/08/18 06:59 14:59 22:59 Intake Total 114 120 Output Total 700 200 0 Balance -586 -80 0 Intake: IV 72 Intake, IV Amount 42 Left Forearm 42 Oral 120 Output: Urine 700 200 0 Urine, Voided 700 200 0 Stool 0 - Medications Active Medications: Active Medications Generic Name Dose Route Start Last Admin Trade Name Freq PRN Reason Stop Dose Admin Acetaminophen 650 mg 04/08/18 06:27 04/08/18 06:33 Tylenol 325mg Tab PO 650 mg Q6 PRN Administration Fever >100.4 F Aspirin 81 mg 04/08/18 09:35 04/08/18 09:57 Aspirin Chewable PO 81 mg DAILY CARISSA Administration Enoxaparin Sodium 40 mg 04/06/18 12:30 04/08/18 09:59 Lovenox SC Not Given DAILY CARISSA Nitroglycerin/Dextrose 50 mg in 250 mls @ 1.5 mls/hr 04/07/18 09:30 04/08/18 02:08 Nitroglycerin 50 Mg/250 Ml D5w IV 15 mcg/min .Q24H CARISSA 4.5 mls/hr Titration Protocol 5 MCG/MIN Insulin Human Regular 0 unit 04/07/18 09:25 04/08/18 13:04 Novolin R SC 8 u ACHS CARISSA Administration Protocol Losartan Potassium 25 mg 04/05/18 10:00 04/08/18 10:00 Cozaar PO 25 mg DAILY CARISSA Administration Metoprolol Tartrate 25 mg 04/07/18 10:00 04/08/18 09:58 Lopressor PO 25 mg BID CARISSA Administration Potassium Chloride 40 meq 04/07/18 10:00 04/08/18 09:57 K-Dur 20 Meq Er Tab PO 40 meq DAILY CARISSA Administration Promethazine HCl/Dextromethorphan 5 ml 04/08/18 09:45 04/08/18 10:11 Phenergan Dm Syrup PO 5 ml Q6H CARISSA Administration Rosuvastatin Calcium 5 mg 04/05/18 22:00 04/07/18 21:34 Crestor PO 5 mg HS CARISSA Administration Ticagrelor 90 mg 04/05/18 10:00 04/08/18 09:58 Brilinta PO 90 mg BID CARISSA Administration - Patient Studies Lab Studies: Lab Studies 04/08/18 04/08/18 04/08/18 Range/Units 11:20 10:22 07:26 WBC (4.8-10.8) K/uL RBC (3.80-5.20) Mil/uL Hgb (11.0-16.0) g/dL Hct (34.0-47.0) % MCV (81.0-99.0) fL MCH (27.0-31.0) pg MCHC (33.0-37.0) g/dL RDW (11.5-14.5) % Plt Count (130-400) K/uL MPV (7.2-11.7) fL Neut % (Auto) (50.0-75.0) % Lymph % (Auto) (20.0-40.0) % Jewell % (Auto) (0.0-10.0) % Eos % (Auto) (0.0-4.0) % Baso % (Auto) (0.0-2.0) % Neut # (Auto) (1.8-7.0) K/uL Lymph # (Auto) (1.0-4.3) K/uL Jewell # (Auto) (0.0-0.8) K/uL Eos # (Auto) (0.0-0.7) K/uL Baso # (Auto) (0.0-0.2) K/uL Sodium (132-148) mmol/L Potassium (3.6-5.2) mmol/L Chloride (98-107) mmol/L Carbon Dioxide (22-30) mmol/L Anion Gap (10-20) BUN (7-17) mg/dL Creatinine (0.7-1.2) mg/dL Est GFR ( Amer) Est GFR (Non-Af Amer) POC Glucose (mg/dL) 355 H 227 H (65-110) mg/dL Random Glucose (65-105) mg/dL Calcium (8.6-10.4) mg/dl Phosphorus (2.5-4.5) mg/dL Magnesium (1.6-2.3) mg/dL Total Bilirubin (0.2-1.3) mg/dL AST (14-36) U/L ALT (9-52) U/L Alkaline Phosphatase (38-126) U/L Total Protein (6.3-8.3) g/dL Albumin (3.5-5.0) g/dL Globulin (2.2-3.9) gm/dL Albumin/Globulin Ratio (1.0-2.1) Influenza Typ A,B (EIA) Negative for flu a/b (NEGATIVE) 04/08/18 04/08/18 04/07/18 Range/Units 06:16 06:16 21:03 WBC 6.2 (4.8-10.8) K/uL RBC 3.55 L (3.80-5.20) Mil/uL Hgb 10.4 L (11.0-16.0) g/dL Hct 30.7 L (34.0-47.0) % MCV 86.3 (81.0-99.0) fL MCH 29.3 (27.0-31.0) pg MCHC 34.0 (33.0-37.0) g/dL RDW 13.9 (11.5-14.5) % Plt Count 252 (130-400) K/uL MPV 7.5 (7.2-11.7) fL Neut % (Auto) 72.2 (50.0-75.0) % Lymph % (Auto) 19.9 L (20.0-40.0) % Jewell % (Auto) 4.4 (0.0-10.0) % Eos % (Auto) 2.9 (0.0-4.0) % Baso % (Auto) 0.6 (0.0-2.0) % Neut # (Auto) 4.4 (1.8-7.0) K/uL Lymph # (Auto) 1.2 (1.0-4.3) K/uL Jewell # (Auto) 0.3 (0.0-0.8) K/uL Eos # (Auto) 0.2 (0.0-0.7) K/uL Baso # (Auto) 0.0 (0.0-0.2) K/uL Sodium 135 (132-148) mmol/L Potassium 3.8 (3.6-5.2) mmol/L Chloride 104 (98-107) mmol/L Carbon Dioxide 28 (22-30) mmol/L Anion Gap 7 L (10-20) BUN 17 (7-17) mg/dL Creatinine 0.9 (0.7-1.2) mg/dL Est GFR ( Amer) > 60 Est GFR (Non-Af Amer) > 60 POC Glucose (mg/dL) 150 H (65-110) mg/dL Random Glucose 222 H (65-105) mg/dL Calcium 9.1 (8.6-10.4) mg/dl Phosphorus 3.6 (2.5-4.5) mg/dL Magnesium 2.0 (1.6-2.3) mg/dL Total Bilirubin 0.6 (0.2-1.3) mg/dL AST 31 (14-36) U/L ALT 18 (9-52) U/L Alkaline Phosphatase 84 (38-126) U/L Total Protein 6.7 (6.3-8.3) g/dL Albumin 3.9 (3.5-5.0) g/dL Globulin 2.8 (2.2-3.9) gm/dL Albumin/Globulin Ratio 1.4 (1.0-2.1) Influenza Typ A,B (EIA) (NEGATIVE) Laboratory Results - last 24 hr 04/07/18 04/08/18 04/08/18 21:03 06:16 06:16 WBC 6.2 RBC 3.55 L Hgb 10.4 L Hct 30.7 L MCV 86.3 MCH 29.3 MCHC 34.0 RDW 13.9 Plt Count 252 MPV 7.5 Neut % (Auto) 72.2 Lymph % (Auto) 19.9 L Jewell % (Auto) 4.4 Eos % (Auto) 2.9 Baso % (Auto) 0.6 Neut # (Auto) 4.4 Lymph # (Auto) 1.2 Jewell # (Auto) 0.3 Eos # (Auto) 0.2 Baso # (Auto) 0.0 Sodium 135 Potassium 3.8 Chloride 104 Carbon Dioxide 28 Anion Gap 7 L BUN 17 Creatinine 0.9 Est GFR ( Amer) > 60 Est GFR (Non-Af Amer) > 60 POC Glucose (mg/dL) 150 H Random Glucose 222 H Calcium 9.1 Phosphorus 3.6 Magnesium 2.0 Total Bilirubin 0.6 AST 31 ALT 18 Alkaline Phosphatase 84 Total Protein 6.7 Albumin 3.9 Globulin 2.8 Albumin/Globulin Ratio 1.4 Influenza Typ A,B (EIA) 04/08/18 04/08/18 04/08/18 07:26 10:22 11:20 WBC RBC Hgb Hct MCV MCH MCHC RDW Plt Count MPV Neut % (Auto) Lymph % (Auto) Jewell % (Auto) Eos % (Auto) Baso % (Auto) Neut # (Auto) Lymph # (Auto) Jewell # (Auto) Eos # (Auto) Baso # (Auto) Sodium Potassium Chloride Carbon Dioxide Anion Gap BUN Creatinine Est GFR ( Amer) Est GFR (Non-Af Amer) POC Glucose (mg/dL) 227 H 355 H Random Glucose Calcium Phosphorus Magnesium Total Bilirubin AST ALT Alkaline Phosphatase Total Protein Albumin Globulin Albumin/Globulin Ratio Influenza Typ A,B (EIA) Negative for flu a/b Radiology Impressions: Radiology Impressions Chest X-Ray 04/08/18 06:00 IMPRESSION: Cardiomegaly-similar. No pulmonary infiltrates seen. Other findings as above. Critical Care Progress Note - Nutrition Nutrition: Nutrition Category Date Time Status NPO Diet [DIET] Diets 04/08/18 Lunch Active Attending/Attestation - Attestation I have personally seen and examined this patient.: Yes I have fully participated in the care of the patient.: Yes I have reviewed all pertinent clinical information: Yes Notes (Text): 04/08/18 18:05 Patient seen and examined in the intensive care unit. Status post RCA stent placement Patient for transfer to [facility] for further management Continue present treatment
--- NOTE | 2018-04-12 12:17 | CARD ---
APPROVED REPORT Date of service: 04/07/2018 EKG Measurement Heart [id number] ID [id number] <Conclusion> Sinus rhythm with marked sinus arrhythmia T wave abnormality, consider inferior ischemia Abnormal ECG
--- NOTE | 2018-04-17 06:24 | DS ---
HISTORY OF PRESENT ILLNESS AND HOSPITAL COURSE: The patient was admitted to hospital with a chief complaint of generalized weakness, fatigue, and tiredness. The patient came to the ER, advised admission. The patient was placed on bedrest, supportive care. The patient showed gradual improved. Discharged, to be followed up as outpatient. Minnie Her MD
== END 2018-04-08 20:33 | disposition short-term general hospital (02) | DRG 853 ==
LOC: C.ER 03:58 → C.9I 05:51
PROVIDERS: ADMIT Internal Medicine Pulmonary Disease; ATTEND Internal Medicine Pulmonary Disease
PROC: 027035Z Dilation of Coronary Artery, One Artery with Two Drug-eluting Intraluminal Devices, Percutaneous Approach (ICD-10-PCS; principal; 2018-04-06)
PROC: B2151ZZ Fluoroscopy of Left Heart using Low Osmolar Contrast (ICD-10-PCS; 2018-04-06)
PROC: 4A023N7 Measurement of Cardiac Sampling and Pressure, Left Heart, Percutaneous Approach (ICD-10-PCS; 2018-04-06)
PROC: B2111ZZ Fluoroscopy of Multiple Coronary Arteries using Low Osmolar Contrast (ICD-10-PCS; 2018-04-06)
DX: I21.19 ST elevation (STEMI) myocardial infarction involving other coronary artery of inferior wall (principal); E10.22 Type 1 diabetes mellitus with diabetic chronic kidney disease; E87.6 Hypokalemia; N18.9 Chronic kidney disease, unspecified; I12.9 Hypertensive chronic kidney disease with stage 1 through stage 4 chronic kidney disease, or unspecified chronic kidney disease; E78.00 Pure hypercholesterolemia, unspecified; E78.5 Hyperlipidemia, unspecified; G47.30 Sleep apnea, unspecified; I25.10 Atherosclerotic heart disease of native coronary artery without angina pectoris; Z79.4 Long term (current) use of insulin